=== PATIENT | male | born 1955 | race Caucasian/White ===

== ENCOUNTER 2019-06-01 19:08 | IRF | payer OTHER, SELFPAY ==
--- NOTE | ~2019-06-01 | XR_ITS ---
EXAMINATION: XR chest 1V portable INDICATION: Assess PICC position TECHNIQUE: Portable AP chest at 2013 hours COMPARISON: None available FINDINGS: A right upper extremity PICC is followed as far as the distal superior vena cava. Its tip p rojects over thoracolumbar fusion hardware. There is a small right pleural effusion. The left lung is clear. There is no pneumothorax. There are changes of bilateral total shoulder arthroplasty. IMPRESSION: 1. Right upper extremity PICC followed as far as the distal superior vena cava. 2. Small right pleural effusion. Reviewed, dictated and finalized at location A.
[2019-06-01 22:00] VITALS: BP 149/71; PULSE 91; RESP 17; TEMP 37.1; O2SAT 97; BMI 23.2
[2019-06-01] MEDS: GABAPENTIN 300 MG CAPSULE PO (23:24)
[2019-06-01] MEDS: INSULIN GLARGINE (*BKC) 100 UNITS/ML 15 UNITS SUB-Q (23:25)
[2019-06-01 23:32] LABS: Glucose Point of Care 159 (65-105)
[2019-06-02] MEDS: ceFAZolin 2 GM/D5W 50 ML 2 GM/50 ML BAG IVPB ×4 (00:22→22:26)
[2019-06-02 05:20] LABS: Basophils Absolute Auto 0.1 K/mm3 (0.0-0.1); Basophils Percent Auto 0.7 % (0.2-1.2); Eosinophils Percent Auto 11.3 % (0-4.4); Hematocrit 27.4 % (42.0-52.0); Hemoglobin 8.4 g/dL (14.0-18.0); Immature Granulocyte Absolute 0.05 K/mm3 (0.00-0.031); Immature Granulocyte Percent A 0.6 % (0-0.5); Lymphocytes Absolute Auto 1.04 K/mm3 (0.9-3.2); Lymphocytes Percent Auto 12.1 % (18.3-44.2); Mean Corpuscular HGB Conc 30.7 g/dl (32-36); Mean Corpuscular Hemoglobin 26.5 pg (26-34); Mean Corpuscular Volume 86.4 fl (80-100); Mean Platelet Volume 8.2 fl (7.4-10.4); Monocytes Absolute Auto 0.7 K/mm3 (0.1-0.6); Monocytes Percent Auto 7.9 % (2.6-8.5); Neutrophils Absolute Auto 5.8 K/mm3 (1.3-6.7); Neutrophils Percent Auto 67.4 % (45.5-73.1); Platelet Count Result 689 k/mm3 (150-375); Red Blood Count 3.17 M/mm3 (4.6-6.20); Red Cell Distribution Width 15.1 % (11.5-14.5); White Blood Count 8.6 K/mm3 (4.5-10.0)
[2019-06-02 05:30] LABS: Hemoglobin A1C 6.7 % (<5.7)
[2019-06-02 05:39] LABS: Blood Urea Nitrogen 11 mg/dL (9-20); Calcium 9.6 mg/dL (8.4-10.2); Carbon Dioxide 31 mmol/L (22-30); Chloride 98 mmol/L (98-107); Estimated CRCL calculation 97 ml/min; Estimated Glomerular Filt Rate > 60; Glucose 135 mg/dL (75-110); Potassium 4.3 mmol/L (3.4-5.0); Sodium 132 mmol/L (137-145)
[2019-06-02 06:00] VITALS: BP 140/73; PULSE 77; RESP 17; TEMP 36.5; O2SAT 97
[2019-06-02] MEDS: ACETAMINOPHEN 500 MG TABLET PO ×4 (06:11→23:47)
[2019-06-02 06:21] LABS: Glucose Point of Care 131 (65-105)
[2019-06-02] MEDS: INSULIN ASPART (*BKC) 100 UNITS/ML 8 UNITS SUB-Q ×3 (07:57→17:08)
[2019-06-02] MEDS: ASPIRIN 325 MG ENTERIC TABLET PO (08:31)
[2019-06-02] MEDS: rifAMPin 300 MG CAPSULE 600 MG PO (08:32)
[2019-06-02] MEDS: ROSUVASTATIN 10 MG TABLET 20 MG PO (08:32)
[2019-06-02] MEDS: SENNOSIDES 8.6 MG TABLET 17.2 MG PO ×2 (08:32→17:07)
[2019-06-02] MEDS: CHOLECALCIFEROL 1,000 UNIT TABLET 1000 UNITS PO (08:32)
[2019-06-02] MEDS: TAMSULOSIN HCL 0.4 MG CAPSULE PO (08:32)
[2019-06-02] MEDS: hydroCHLOROthiazide 12.5 MG CAPSULE PO ×2 (08:32→17:07)
[2019-06-02] MEDS: polyethylene glycoL 3350 17 GM POWD.PACK 34 GM PO ×2 (08:32→17:07)
[2019-06-02] MEDS: lisinopriL 20 MG TABLET PO ×2 (08:33→17:07)
[2019-06-02] MEDS: GABAPENTIN 300 MG CAPSULE PO ×3 (08:33→17:06)
--- NOTE | 2019-06-02 11:30 | WPDREHABHP ---
H&P: HPI History of Present Illness Chief complaint: T 9-10 Osteomyelitis Narrative: William García is a 63 year old male HISTORY OF PRESENT ILLNESS: The patient's primary rehab impairment category is orthopedic/other The etiologic diagnosis is T10-T11 pathological fracture / status post surgery I saw this patient [id number] on June 02, 2019 at 11:30 a.m. The patient is a 63-year-old right-handed male with a prior medical history of diabetes mellitus with diabetic peripheral neuropathy, left foot osteomyelitis, and hypertension who presented to [facility] on May 13 for evaluation of possible thoracic osteomyelitis/ diskitis. The patient reported that he has had progressive back pain over the previous few weeks which became severe enough with the previous several days. He also repeated generalized weakness spasm in both legs and constipation. The patient is recovering from a recent episode of left foot osteomyelitis MS as a bacteremia. The patient has an I and D of his left foot on March 27, [address] Ezequiel Oh. Wound cultures and blood cultures were also positive 1 March 27, 2019. The patient completed 6 weeks of IV Ancef on May 09 and was placed on 2 weeks of oral cefdinir to complete the treatment. Initial workup was significant for elevated sedimentation rate and CRP with no leukocytosis reviewed. MRI of the left spine showed degenerative disc disease CT of the abdomen /pelvis demonstrated stool burden the cecum and ascending colon as well as T9-T10 osseous erosion. this was followed by MRI of the thoracic spine that was concerning for osteomyelitis / diskitis. The patient was transferred to [facility] and May 15, 2019 for neurosurgical evaluation. The patient was hypertensive upon arrival with blood pressure of 214/112 and he was restarted on home medication of lisinopril and hydrochlorothiazide. His potassium was 3.2 which was replaced with oral medication. the hemoglobin A1c was 7.4 in photo in 2019. The final conclusion was the patient has a pathological fracture of T11-T10 and vertebral osteomyelitis. Orthopedic spine thoracic surgery and infectious disease physicians were all consulted and the patient underwent T7-L2 posterior instrumentation, T7-L2 posterior arthrodesis with local autograft, left T11 him I laminectomy and facetectomy on May 18, 2019. He was sent back to surgery on May 25, 2019 for T10 and T11 corpectomy knees with prosthetic reconstruction and T9-T12 anterior anterior spinal arthrodesis with her rested rib graft. The sutures were removed by orthopedic physician on June 01, 2019. He is to follow-up with Dr. Matthew in 4 weeks from surgery. On May 26 the patient received 1 unit of packed RBCs due to hemoglobin being down to 6.9 and is stable at 8.4. His chest tube was removed on May 28, 2019. The patient remains awake alert well oriented time place and person. He did have experience hypertension hypoglycemia pneumonia constipation generalized weakness acute will last anemia uncontrolled pain and gait instability leukocytosis during hospitalization and post surgery predated Infectious Disease recommended another 6 weeks course of IV antibiotics which is cefazolin from surgery last date of May 24, 2020 the surgery was performed PICC line was placed June 01, 2019 he is to follow up with , per at risk and also other physicians post rehab The patient has not traveled outside the [place] or had contact with someone with [place] that is travel outside the [place] in the past 21 days. The patient not has not traveled to an area he was this experiencing Esther transmission of the Coronavirus and has not had closed 1st contact with anyone that has. Patient does not have a fever. The patient is not experiencing lower respiratory illness symptoms or upper respiratory symptoms Therapy was initiated at the acute care facility and the patient transferred to us from
[2019-06-02 11:49] LABS: Glucose Point of Care 183 (65-105)
[2019-06-02 12:48] VITALS: BMI 23.2
[2019-06-02 14:00] VITALS: BP 102/53; PULSE 88; RESP 20; TEMP 37.2; O2SAT 100
[2019-06-02 16:53] LABS: Glucose Point of Care 200 (65-105)
[2019-06-02] MEDS: INSULIN GLARGINE (*BKC) 100 UNITS/ML 15 UNITS SUB-Q (20:18)
[2019-06-02 21:43] LABS: Glucose Point of Care 205 (65-105)
[2019-06-02 22:00] VITALS: BP 133/70; PULSE 88; RESP 18; TEMP 37.4; O2SAT 100
[2019-06-03] MEDS: ACETAMINOPHEN 500 MG TABLET PO ×2 (05:52→11:50)
[2019-06-03] MEDS: ceFAZolin 2 GM/D5W 50 ML 2 GM/50 ML BAG IVPB ×3 (05:52→23:55)
[2019-06-03 06:00] VITALS: BP 148/77; PULSE 78; RESP 18; TEMP 37.1; O2SAT 98
[2019-06-03 06:33] LABS: Glucose Point of Care 158 (65-105)
[2019-06-03] MEDS: INSULIN ASPART (*BKC) 100 UNITS/ML 8 UNITS SUB-Q ×3 (07:04→17:05)
[2019-06-03] MEDS: CHOLECALCIFEROL 1,000 UNIT TABLET 1000 UNITS PO (08:37)
[2019-06-03] MEDS: TAMSULOSIN HCL 0.4 MG CAPSULE PO (08:37)
[2019-06-03] MEDS: rifAMPin 300 MG CAPSULE 600 MG PO (08:37)
[2019-06-03] MEDS: ASPIRIN 325 MG ENTERIC TABLET PO (08:37)
[2019-06-03] MEDS: polyethylene glycoL 3350 17 GM POWD.PACK 34 GM PO ×2 (08:37→17:03)
[2019-06-03] MEDS: ROSUVASTATIN 10 MG TABLET 20 MG PO (08:37)
[2019-06-03] MEDS: lisinopriL 20 MG TABLET PO ×2 (08:37→17:03)
[2019-06-03] MEDS: SENNOSIDES 8.6 MG TABLET 17.2 MG PO ×2 (08:37→17:03)
[2019-06-03] MEDS: hydroCHLOROthiazide 12.5 MG CAPSULE PO ×2 (08:38→17:04)
[2019-06-03] MEDS: GABAPENTIN 300 MG CAPSULE PO ×3 (08:38→17:04)
[2019-06-03 11:50] LABS: Glucose Point of Care 169 (65-105)
--- NOTE | 2019-06-03 12:02 | RPD ---
INDIVIDUALIZED PLAN OF CARE FOR William García Brief Synthesis of Pre-Admission Screen, Post-Admission Evaluation and Therapy Evaluations: The patient presents to rehab with T10-T11 pathological fracture. Comorbidities include vertebral osteomyelitis, cervical cord myelomalacia, severe spinal stenosis at L3-4 and L4-5, small left lateral disc herniation at L4-5, moderately severe spinal stenosis at L1-2 and L2-3, bilateral pleural effusions, left inguinal hernia, diabetes mellitus with diabetic peripheral neuropathy, hypertension, bilateral knee pain, musculosketetal fibromatosis left foot, numbness of left hand, skin lesion, diabetic charcot left foot, chronic plantar wound (11/2018) c/b MSSA infection with osteomyelitis, MSSA bacteremia (6wk abx tx completed but anticipate another 6wk course from surgery 05/24). The patient requires physician services for medical oversight, management of postop complications in setting of present comorbidities, and pain management. She will be followed at least three times a week by the rehabilitation physician. Labs will be drawn to monitor blood counts and electrolytes periodically. The patient requires nursing services for DVT prophylactics, infection protection, medication management and education, pressure relief, and wound care. Deficits include: ADLs, Balance, Endurance, Family Training/Education, Mobility, Pain Management, ROM, Safety, Strength, Transfers Service Loss Control Consultant/Case Management for: Discharge Planning and Patient/Family Counseling Physical Therapy: 5 days per week for 90 minutes. Treatments may include: Therapeutic Exercise, Gait Training, Neuromuscular Re-education, Transfer Training, Community Reintegration, Bed Mobility, Patient/Family Education, Wheelchair Mobility Group Therapy/Concurrent Therapy Rationales: -Improve attention span during functional activities in a distracted environment. -Enhance problem solving and/or adequate judgment skills during functional activities in a distracted environment. -Promote increased safety awareness in a distracted environment to reduce fall risk with functional tasks, transfers, and ambulation to allow a more safe, self-sufficient return to the home environment. -Improve dynamic balance skills to promote safety and independence with functional activities in a distracted environment for maximum gain. Occupational Therapy: 5 days per week for 90 minutes. Treatments may include: Therapeutic Exercise, Therapeutic Activity, Cognitive Training, Self-Care Transfer Training, Community Reintegration, Home Management, Patient/Family Education, Wheelchair Mobility Training, Energy Conservation Training Group Therapy/Concurrent Therapy Rationales: -Allow therapist to observe and teach generalization and carry-over of skills learned in individual therapy. -Enhance problem solving and sequencing skills during therapeutic activities in a distracted environment. -Promote increased safety awareness in a realistic setting to reduce fall risk with functional tasks due to visual and verbal distractions. -Increase functional level with ADLs, ADL transfers and use of adaptive equipment through therapeutic activities with others while promoting safety to allow a more safe, self-sufficient return home. Medical Prognosis: Good Anticipated Length of Stay: 12 days Rehab Goals: Eating Goal: 06-Independent Oral Hygiene Goal: 06-Independent Toileting Hygiene Goal: 06-Independent Shower/Bathe Self Goal: 04-Supervision or Touching Assistance Upper Body Dressing Goal: 06-Independent Lower Body Dressing Goal: 06-Independent Putting On/Taking Off Footwear Goal: 06-Independent Rolling Left and Right Goal: 06-Independent Sit to Lying Goal: 06-Independent Lying to Sitting on Side of Bed Goal: 06-Independent Sit to Stand Goal: 06-Independent Chair/[id number] Transfer Goal: 06-Independent Toilet Transfer Goal: 06-Independent Car Transfer Goal: 04-Supervision or Touching Assistance Walk 10'
--- NOTE | 2019-06-03 13:06 | WPDNEURORHBP ---
Subjective Date/time seen: 06/03/19 13:06 Interval history: this 63-year-old diabetic gentleman is here after the surgery performed for T10-T11 pathological fracture. His incisions are clean he is afebrile denies any headache nausea vomiting chest pain shortness of breath fever chills his main trouble is the ambulation but he needs significant assistance which is the combination of his spinal surgery and also significant peripheral neuropathy related to underlying diabetes Review of Systems Review of Systems: All systems reviewed & are unremarkable except as noted in HPI and below Functional Status Transfers Ability Ability to Transfer In/Out of Chair: Minimum Assistance X 1 Exam Const: General: comfortable and no acute distress HENMT: General nose exam: Normal nares present Mouth: Yes moist mucous membranes Eyes: General: appearance normal, both eyes and all related structures Neck: Neck: supple and no JVD Resp: Effort & Inspection: normal respiratory effort Auscultation: clear to auscultation bilaterally Cardio: Rate: regular rate Rhythm: regular rhythm GI: GI Palp: Yes Soft to palpation Auscultation: normal bowel sounds Skin: General skin exam: normal color and no rashes or lesions noted Neuro: Other: patient remains awake alert well oriented in time place and person with normal speech and language function normal cranial nerve examination decrease strength lower extremities much more so than the upper extremities with evidence of significant peripheral neuropathy Needing assistance in the activities of daily living particularly the ambulation and transfers Extrem: Other: evidence of significant peripheral neuropathy along with the deformed left foot Psych: Mental Status: mental status grossly normal Objective Data Vital Signs Vital Signs: Vital Signs - 24 hr 06/02/19 14:00 06/02/19 22:00 06/03/19 06:00 Temperature 37.2 C 37.4 C 37.1 C Pulse Rate 88 88 78 Respiratory Rate 20 18 18 Blood Pressure 102/53 L 133/70 148/77 H Pulse Oximetry 100 100 98 Intake/Output Intake/Output: Intake & Output 05/31/19 06/01/19 06/02/19 06/03/19 23:59 23:59 23:59 23:59 Intake Total 1400 50 Balance 1400 50 Meds/Results Medications: Active Medications Generic Name Dose Route Start Last Admin Trade Name Freq PRN Reason Stop Dose Admin Acetaminophen 500 mg 06/02/19 00:00 06/03/19 11:50 Tylenol Tablet PO 500 mg Q6HR KAVYA Administration Aspirin 325 mg 06/02/19 09:00 06/03/19 08:37 Aspirin Ec PO 325 mg DAILY KAVYA Administration Calcium Carbonate 500 mg 06/01/19 22:42 Tums PO DAILY PRN Heartburn Cyclobenzaprine HCl 20 mg 06/01/19 23:20 Flexeril PO TID PRN Spasms Dextrose 12.5 gm 06/01/19 21:57 Dextrose 50% Syringe IV PUSH PRN PRN Hypoglycemia Protocol Gabapentin 300 mg 06/01/19 22:50 06/03/19 08:38 Neurontin PO 300 mg TID KAVYA Administration Glucagon 1 mg 06/01/19 21:57 Glucagon For Inj IM PRN PRN Hypoglycemia Protocol Glucose 15 gm 06/01/19 21:57 Glutose 15 PO PRN PRN Hypoglycemia Protocol Hydrochlorothiazide 12.5 mg 06/02/19 09:00 06/03/19 08:38 Hydrochlorothiazide PO 12.5 mg BID KAVYA Administration Dextrose 1,000 mls @ 100 mls/hr 06/01/19 21:57 Dextrose 5% 1,000 Ml IVPB PRN PRN Hypoglycemia Protocol Cefazolin Sodium 2 gm in 50 mls @ 100 mls/hr 06/01/19 22:55 06/03/19 06:22 Ancef 2 Gm/D5w 50 Ml IVPB Infused Q8H KAVYA Infusion Insulin Aspart 8 units 06/02/19 08:00 06/03/19 11:52 Novolog SUB-Q 8 units TIDWM KAVYA Administration Insulin Aspart 3 - 6 units 06/02/19 08:00 06/03/19 11:52 Novolog SUB-Q Not Given TIDWM [facility] Protocol Insulin Glargine 15 units 06/01/19 22:10 06/02/19 20:18 Lantus SUB-Q 15 units HS KAVYA Administration Lactulose 30 gm 06/01/19 22:49 Lactulose PO TID
[2019-06-03 14:00] VITALS: BP 109/57; PULSE 84; RESP 20; TEMP 37.2; O2SAT 99
[2019-06-03 16:44] LABS: Glucose Point of Care 104 (65-105)
[2019-06-03] MEDS: ACETAMINOPHEN 500 MG TABLET 1000 MG PO (17:03)
[2019-06-03] MEDS: INSULIN GLARGINE (*BKC) 100 UNITS/ML 15 UNITS SUB-Q (20:45)
[2019-06-03 21:28] LABS: Glucose Point of Care 199 (65-105)
[2019-06-03 22:00] VITALS: BP 176/78; PULSE 91; RESP 19; TEMP 37.3; O2SAT 95
[2019-06-04] MEDS: CYCLOBENZAPRINE HCL 10 MG TABLET 20 MG PO ×3 (00:37→23:14)
[2019-06-04] MEDS: ACETAMINOPHEN 500 MG TABLET 1000 MG PO ×5 (00:37→23:14)
[2019-06-04] MEDS: ceFAZolin 2 GM/D5W 50 ML 2 GM/50 ML BAG IVPB ×3 (05:56→23:14)
[2019-06-04 06:00] VITALS: BP 158/83; PULSE 66; RESP 18; TEMP 36.8; O2SAT 100
[2019-06-04 06:12] LABS: Basophils Absolute Auto 0.1 K/mm3 (0.0-0.1); Basophils Percent Auto 1.1 % (0.2-1.2); Eosinophils Absolute Auto 1.1 K/mm3 (0-0.3); Eosinophils Percent Auto 16.4 % (0-4.4); Hematocrit 26.3 % (42.0-52.0); Immature Granulocyte Absolute 0.04 K/mm3 (0.00-0.031); Immature Granulocyte Percent A 0.6 % (0-0.5); Lymphocytes Absolute Auto 1.11 K/mm3 (0.9-3.2); Lymphocytes Percent Auto 16.7 % (18.3-44.2); Mean Corpuscular HGB Conc 30.4 g/dl (32-36); Mean Corpuscular Hemoglobin 26.6 pg (26-34); Mean Corpuscular Volume 87.4 fl (80-100); Mean Platelet Volume 8.2 fl (7.4-10.4); Monocytes Absolute Auto 0.6 K/mm3 (0.1-0.6); Monocytes Percent Auto 8.7 % (2.6-8.5); Neutrophils Absolute Auto 3.8 K/mm3 (1.3-6.7); Neutrophils Percent Auto 56.5 % (45.5-73.1); Platelet Count Result 621 k/mm3 (150-375); Red Blood Count 3.01 M/mm3 (4.6-6.20); Red Cell Distribution Width 15.2 % (11.5-14.5); White Blood Count 6.7 K/mm3 (4.5-10.0)
[2019-06-04 06:25] LABS: Alkaline Phosphatase 136 U/L (38-126); Aspartate Amino Transferase 21 U/L (17-59); Bilirubin,Total 0.2 mg/dL (0.2-1.3); Blood Urea Nitrogen 15 mg/dL (9-20); Calcium 9.4 mg/dL (8.4-10.2); Carbon Dioxide 34 mmol/L (22-30); Chloride 99 mmol/L (98-107); Estimated CRCL calculation 97 ml/min; Estimated Glomerular Filt Rate > 60; Glucose 123 mg/dL (75-110); Sodium 136 mmol/L (137-145)
[2019-06-04 06:44] LABS: Alanine Aminotransferase < 6 U/L (4-50)
[2019-06-04] MEDS: INSULIN ASPART (*BKC) 100 UNITS/ML 8 UNITS SUB-Q ×3 (07:31→17:04)
[2019-06-04 07:37] LABS: Glucose Point of Care 111 (65-105)
[2019-06-04] MEDS: polyethylene glycoL 3350 17 GM POWD.PACK 34 GM PO (08:42)
[2019-06-04] MEDS: ROSUVASTATIN 10 MG TABLET 20 MG PO (08:43)
[2019-06-04] MEDS: rifAMPin 300 MG CAPSULE 600 MG PO (08:43)
[2019-06-04] MEDS: hydroCHLOROthiazide 12.5 MG CAPSULE PO ×2 (08:43→17:04)
[2019-06-04] MEDS: lisinopriL 20 MG TABLET PO ×2 (08:43→17:04)
[2019-06-04] MEDS: GABAPENTIN 300 MG CAPSULE PO ×3 (08:43→17:06)
[2019-06-04] MEDS: TAMSULOSIN HCL 0.4 MG CAPSULE PO (08:43)
[2019-06-04] MEDS: ASPIRIN 325 MG ENTERIC TABLET PO (08:43)
[2019-06-04] MEDS: SENNOSIDES 8.6 MG TABLET 17.2 MG PO (08:43)
[2019-06-04] MEDS: CHOLECALCIFEROL 1,000 UNIT TABLET 1000 UNITS PO (08:43)
--- NOTE | 2019-06-04 11:58 | WPDNEURORHBP ---
Subjective Date/time seen: 06/04/19 11:58 Interval history: this 63-year-old very pleasant diabetic gentleman is here after having had surgery for the T10-T11 pathological fracture followed by osteomyelitis and even before that he was treated for osteomyelitis and MSSA with significant evidence of peripheral neuropathy Patient is doing remarkably well in over rehab the wounds are clean from the previous multiple surgeries on his spine and also the place where the chest tube was placed. The patient denies any headache nausea vomiting chest pain shortness of breath fever chills or sore throat Functional Status Ambulation Ability Ambulation Assistive Devices: Parallel Bars Transfers Ability Ability to Transfer In/Out of Chair: Minimum Assistance X 1 Exam Const: General: comfortable and no acute distress HENMT: General nose exam: Normal nares present Mouth: Yes moist mucous membranes Eyes: General: appearance normal, both eyes and all related structures Neck: Neck: supple and no JVD Resp: Effort & Inspection: normal respiratory effort Auscultation: clear to auscultation bilaterally Cardio: Rate: regular rate Rhythm: regular rhythm GI: GI Palp: Yes Soft to palpation Auscultation: normal bowel sounds Skin: General skin exam: normal color and no rashes or lesions noted Neuro: Other: patient is speech and language functions are normal cranial examination normal is main deficit is related to his lower extremity weakness which is due to multiple factors including significant peripheral neuropathy lower extremities more so than the upper extremities along with I suspect spinal cord dysfunction related to multiple spinal surgeries Extrem: General: normal to inspection Psych: Mental Status: mental status grossly normal Objective Data Vital Signs Vital Signs: Vital Signs - 24 hr 06/04/19 14:00 06/04/19 22:00 06/05/19 06:00 Temperature 36.8 C 36.8 C 37.0 C Pulse Rate 80 76 74 Respiratory Rate 18 18 18 Blood Pressure 125/69 112/63 149/71 H Pulse Oximetry 99 100 100 Intake/Output Intake/Output: Intake & Output 06/02/19 06/03/19 06/04/19 06/05/19 23:59 23:59 23:59 23:59 Intake Total 9084 443 9540 290 Balance 3321 859 3937 290 Meds/Results Medications: Active Medications Generic Name Dose Route Start Last Admin Trade Name Freq PRN Reason Stop Dose Admin Acetaminophen 1,000 mg 06/03/19 18:00 06/05/19 06:05 Tylenol Tablet PO 1,000 mg Q6HR KAVYA Administration Aspirin 325 mg 06/02/19 09:00 06/05/19 08:54 Aspirin Ec PO 325 mg DAILY KAVYA Administration Calcium Carbonate 500 mg 06/01/19 22:42 Tums PO DAILY PRN Heartburn Cyclobenzaprine HCl 20 mg 06/01/19 23:20 06/05/19 06:10 Flexeril PO 20 mg TID PRN Administration Spasms Dextrose 12.5 gm 06/01/19 21:57 Dextrose 50% Syringe IV PUSH PRN PRN Hypoglycemia Protocol Gabapentin 300 mg 06/01/19 22:50 06/05/19 08:53 Neurontin PO 300 mg TID KAVYA Administration Glucagon 1 mg 06/01/19 21:57 Glucagon For Inj IM PRN PRN Hypoglycemia Protocol Glucose 15 gm 06/01/19 21:57 Glutose 15 PO PRN PRN Hypoglycemia Protocol Hydrochlorothiazide 12.5 mg 06/02/19 09:00 06/05/19 08:54 Hydrochlorothiazide PO 12.5 mg BID KAVYA Administration Dextrose 1,000 mls @ 100 mls/hr 06/01/19 21:57 Dextrose 5% 1,000 Ml IVPB PRN PRN Hypoglycemia Protocol Cefazolin Sodium 2 gm in 50 mls @ 100 mls/hr 06/01/19 22:55 06/05/19 06:36 Ancef 2 Gm/D5w 50 Ml IVPB Infused Q8H KAVYA Infusion Insulin Aspart 8 units 06/02/19 08:00 06/05/19 08:57 Novolog SUB-Q 8 units TIDWM KAVYA Administration Insulin Aspart 3 - 6 units 06/02/19 08:00 06/05/19 08:54 Novolog SUB-Q Not Given TIDWM [facility] Protocol Insulin Glargine 15 units 06/01/19 22:10 06/04/19 21:07 Lantus SUB-Q 15 units HS [facility] Administration Lactulo
[2019-06-04 12:09] LABS: Glucose Point of Care 119 (65-105)
[2019-06-04 14:00] VITALS: BP 125/69; PULSE 80; RESP 18; TEMP 36.8; O2SAT 99
[2019-06-04 17:04] LABS: Glucose Point of Care 102 (65-105)
--- NOTE | 2019-06-04 18:03 | PC.NURSE ---
pt refused miralax and senna at 1700. Pt states he had BM 06/02 and he doesn't typically go every day. updated.
[2019-06-04] MEDS: INSULIN GLARGINE (*BKC) 100 UNITS/ML 15 UNITS SUB-Q (21:07)
[2019-06-04 21:32] LABS: Glucose Point of Care 159 (65-105)
[2019-06-04 22:00] VITALS: BP 112/63; PULSE 76; RESP 18; TEMP 36.8; O2SAT 100
[2019-06-05 06:00] VITALS: BP 149/71; PULSE 74; RESP 18; TEMP 37; O2SAT 100
[2019-06-05] MEDS: ACETAMINOPHEN 500 MG TABLET 1000 MG PO ×3 (06:05→18:43)
[2019-06-05] MEDS: ceFAZolin 2 GM/D5W 50 ML 2 GM/50 ML BAG IVPB ×3 (06:06→21:03)
[2019-06-05] MEDS: CYCLOBENZAPRINE HCL 10 MG TABLET 20 MG PO ×2 (06:10→16:09)
[2019-06-05 06:38] LABS: Glucose Point of Care 77 (65-105)
[2019-06-05] MEDS: TAMSULOSIN HCL 0.4 MG CAPSULE PO (08:53)
[2019-06-05] MEDS: lisinopriL 20 MG TABLET PO ×2 (08:53→18:42)
[2019-06-05] MEDS: rifAMPin 300 MG CAPSULE 600 MG PO (08:53)
[2019-06-05] MEDS: GABAPENTIN 300 MG CAPSULE PO ×3 (08:53→18:40)
[2019-06-05] MEDS: ROSUVASTATIN 10 MG TABLET 20 MG PO (08:53)
[2019-06-05] MEDS: ASPIRIN 325 MG ENTERIC TABLET PO (08:54)
[2019-06-05] MEDS: hydroCHLOROthiazide 12.5 MG CAPSULE PO ×2 (08:54→18:40)
[2019-06-05] MEDS: CHOLECALCIFEROL 1,000 UNIT TABLET 1000 UNITS PO (08:54)
[2019-06-05] MEDS: INSULIN ASPART (*BKC) 100 UNITS/ML 8 UNITS SUB-Q ×2 (08:57→18:46)
--- NOTE | 2019-06-05 09:44 | PCDIET ---
Nutrition Follow-Up Complete: Nutrition Diagnosis: Altered nutrition related labs related to diabetes mellitus as evidenced by HgbA1C of 6.7%. Nutrition Goal: Patient will continue to consume 75% of meals or greater. Goal met. Patient consuming 100% of meals on diabetic, carbohydrate controlled diet, which is appropriate. Last recorded weight is 82.1 kg. Recommend obtaining new weight. Bowel Motility: +BM on 06/03/19. Labs Reviewed: Glu (77) Meds Noted: Ancef, Hydrochlorothiazide, Novolog, Lantus, Miralax, Senna, Vitamin D Additional Notes: Flank and back incisions well approximated. No documented pressure ulcers. Will continue to monitor with same goal. Nutrition Monitoring and Evaluation: Follow up every 7 days.
[2019-06-05 12:08] LABS: Glucose Point of Care 66 (65-105)
[2019-06-05 14:00] VITALS: BP 119/62; PULSE 89; RESP 20; TEMP 37.1; O2SAT 89
[2019-06-05 14:01] LABS: Glucose Point of Care 240 (65-105)
--- NOTE | 2019-06-05 14:22 | WPDNEURORHBP ---
Subjective Date/time seen: 06/05/19 14:22 Interval history: this 63-year-old gentleman is here because of pathological fracture of the T10 and T11 status post multiple surgeries on his spine with significant weakness of the lower extremities related to spinal cord dysfunction I presume and also significant peripheral neuropathy affecting the lower extremities more so than the upper extremities he is doing better in the rehab and took about 6 steps and while sitting he is able to move his legs quite well denies any headache nausea vomiting chest pain shortness of breath fever chills or sore throat Review of Systems Review of Systems: All systems reviewed & are unremarkable except as noted in HPI and below Constitutional: Constitutional: Reports as per HPI and Reports no additional constitutional complaints Functional Status Ambulation Ability Ambulation Assistive Devices: Parallel Bars Transfers Ability Ability to Transfer In/Out of Chair: Minimum Assistance X 1 Exam Const: General: comfortable and no acute distress HENMT: General nose exam: Normal nares present Mouth: Yes moist mucous membranes Eyes: General: appearance normal, both eyes and all related structures Neck: Neck: supple and no JVD Resp: Effort & Inspection: normal respiratory effort Auscultation: clear to auscultation bilaterally Cardio: Rate: regular rate Rhythm: regular rhythm GI: GI Palp: Yes Soft to palpation Auscultation: normal bowel sounds Skin: General skin exam: normal color and no rashes or lesions noted Neuro: Other: patient's mental status is normal cranial exam shows normal reflexes are absent lower extremity weakness is some better no evidence of DVT on clinical examination Extrem: General: normal to inspection Psych: Mental Status: mental status grossly normal Objective Data Vital Signs Vital Signs: Vital Signs - 24 hr 06/04/19 22:00 06/05/19 06:00 Temperature 36.8 C 37.0 C Pulse Rate 76 74 Respiratory Rate 18 18 Blood Pressure 112/63 149/71 H Pulse Oximetry 100 100 Intake/Output Intake/Output: Intake & Output 06/02/19 06/03/19 06/04/19 06/05/19 23:59 23:59 23:59 23:59 Intake Total 6512 255 7928 530 Balance 3368 456 8499 530 Meds/Results Medications: Active Medications Generic Name Dose Route Start Last Admin Trade Name Freq PRN Reason Stop Dose Admin Acetaminophen 1,000 mg 06/03/19 18:00 06/05/19 13:45 Tylenol Tablet PO 1,000 mg Q6HR KAVYA Administration Aspirin 325 mg 06/02/19 09:00 06/05/19 08:54 Aspirin Ec PO 325 mg DAILY KAVYA Administration Calcium Carbonate 500 mg 06/01/19 22:42 Tums PO DAILY PRN Heartburn Cyclobenzaprine HCl 20 mg 06/01/19 23:20 06/05/19 06:10 Flexeril PO 20 mg TID PRN Administration Spasms Dextrose 12.5 gm 06/01/19 21:57 Dextrose 50% Syringe IV PUSH PRN PRN Hypoglycemia Protocol Gabapentin 300 mg 06/01/19 22:50 06/05/19 13:45 Neurontin PO 300 mg TID KAVYA Administration Glucagon 1 mg 06/01/19 21:57 Glucagon For Inj IM PRN PRN Hypoglycemia Protocol Glucose 15 gm 06/01/19 21:57 Glutose 15 PO PRN PRN Hypoglycemia Protocol Hydrochlorothiazide 12.5 mg 06/02/19 09:00 06/05/19 08:54 Hydrochlorothiazide PO 12.5 mg BID KAVYA Administration Dextrose 1,000 mls @ 100 mls/hr 06/01/19 21:57 Dextrose 5% 1,000 Ml IVPB PRN PRN Hypoglycemia Protocol Cefazolin Sodium 2 gm in 50 mls @ 100 mls/hr 06/01/19 22:55 06/05/19 06:36 Ancef 2 Gm/D5w 50 Ml IVPB Infused Q8H [facility] Infusion Insulin Aspart 8 units 06/02/19 08:00 06/05/19 13:47 Novolog SUB-Q Not Given TIDWM [facility] Insulin Aspart 3 - 6 units 06/02/19 08:00 06/05/19 13:45 Novolog SUB-Q Not Given TIDWM [facility] Protocol Insulin Glargine 15 units 06/01/19 22:10 06/04/19 21:07 Lantus SUB-Q 15 units HS KAVYA Administration Lactulose 30 gm 05/13
[2019-06-05 17:27] LABS: Glucose Point of Care 182 (65-105)
[2019-06-05] MEDS: INSULIN GLARGINE (*BKC) 100 UNITS/ML 15 UNITS SUB-Q (21:03)
[2019-06-05 21:12] LABS: Glucose Point of Care 224 (65-105)
[2019-06-05 21:42] VITALS: BP 130/71; PULSE 90; RESP 18; TEMP 37.1; O2SAT 98
[2019-06-06] MEDS: ACETAMINOPHEN 500 MG TABLET 1000 MG PO ×3 (04:55→16:59)
[2019-06-06] MEDS: ceFAZolin 2 GM/D5W 50 ML 2 GM/50 ML BAG IVPB ×3 (06:02→20:34)
[2019-06-06 06:22] VITALS: BP 135/68; PULSE 88; RESP 18; TEMP 37; O2SAT 96
[2019-06-06 06:49] LABS: Glucose Point of Care 144 (65-105)
[2019-06-06] MEDS: INSULIN ASPART (*BKC) 100 UNITS/ML 8 UNITS SUB-Q ×3 (07:41→16:58)
[2019-06-06] MEDS: rifAMPin 300 MG CAPSULE 600 MG PO (08:42)
[2019-06-06] MEDS: ASPIRIN 325 MG ENTERIC TABLET PO (08:42)
[2019-06-06] MEDS: ROSUVASTATIN 10 MG TABLET 20 MG PO (08:42)
[2019-06-06] MEDS: GABAPENTIN 300 MG CAPSULE PO ×3 (08:43→16:59)
[2019-06-06] MEDS: TAMSULOSIN HCL 0.4 MG CAPSULE PO (08:43)
[2019-06-06] MEDS: hydroCHLOROthiazide 12.5 MG CAPSULE PO ×2 (08:43→16:59)
[2019-06-06] MEDS: lisinopriL 20 MG TABLET PO ×2 (08:43→17:00)
[2019-06-06] MEDS: CHOLECALCIFEROL 1,000 UNIT TABLET 1000 UNITS PO (08:43)
[2019-06-06] MEDS: CYCLOBENZAPRINE HCL 10 MG TABLET 20 MG PO (11:32)
[2019-06-06 11:37] LABS: Glucose Point of Care 118 (65-105)
[2019-06-06 14:00] VITALS: BP 128/66; PULSE 82; RESP 20; TEMP 36.6; O2SAT 98
[2019-06-06 16:30] LABS: Glucose Point of Care 156 (65-105)
[2019-06-06] MEDS: INSULIN GLARGINE (*BKC) 100 UNITS/ML 15 UNITS SUB-Q (20:34)
[2019-06-06 21:04] LABS: Glucose Point of Care 233 (65-105)
[2019-06-06 22:00] VITALS: BP 126/72; PULSE 83; RESP 18; TEMP 36.9; O2SAT 100
[2019-06-07] MEDS: ACETAMINOPHEN 500 MG TABLET 1000 MG PO ×4 (00:37→17:45)
[2019-06-07 05:51] LABS: Glucose Point of Care 108 (65-105)
[2019-06-07 06:00] VITALS: BP 149/77; PULSE 74; RESP 18; TEMP 37; O2SAT 100
[2019-06-07] MEDS: ceFAZolin 2 GM/D5W 50 ML 2 GM/50 ML BAG IVPB ×3 (06:04→20:55)
[2019-06-07] MEDS: INSULIN ASPART (*BKC) 100 UNITS/ML 8 UNITS SUB-Q ×2 (09:28→17:43)
[2019-06-07] MEDS: CYCLOBENZAPRINE HCL 10 MG TABLET 20 MG PO ×2 (09:28→20:55)
[2019-06-07] MEDS: ASPIRIN 325 MG ENTERIC TABLET PO (09:29)
[2019-06-07] MEDS: lisinopriL 20 MG TABLET PO ×2 (09:31→17:45)
[2019-06-07] MEDS: hydroCHLOROthiazide 12.5 MG CAPSULE PO ×2 (09:31→17:45)
[2019-06-07] MEDS: GABAPENTIN 300 MG CAPSULE PO ×3 (09:31→17:44)
[2019-06-07] MEDS: CHOLECALCIFEROL 1,000 UNIT TABLET 1000 UNITS PO (09:31)
[2019-06-07] MEDS: rifAMPin 300 MG CAPSULE 600 MG PO (09:32)
[2019-06-07] MEDS: ROSUVASTATIN 10 MG TABLET 20 MG PO (09:32)
[2019-06-07] MEDS: TAMSULOSIN HCL 0.4 MG CAPSULE PO (09:33)
--- NOTE | 2019-06-07 11:28 | WPDNEURORHBP ---
Subjective Date/time seen: 06/07/19 11:28 S/P T10and T11 pathological fracture with spinal cord dysfunctionand peripheral neuropathy Review of Systems Review of Systems: All systems reviewed & are unremarkable except as noted in HPI and below Functional Status Ambulation Ability Ambulation Assistive Devices: Parallel Bars Transfers Ability Ability to Transfer In/Out of Chair: Minimum Assistance X 1 Exam Const: General: comfortable and no acute distress HENMT: Head: normal to inspection General nose exam: No nasal discharge present Eyes: General: appearance normal, both eyes and all related structures Neck: Neck: full ROM Resp: Auscultation: clear to auscultation bilaterally Cardio: Rate: regular rate Rhythm: regular rhythm GI: Auscultation: normal bowel sounds Skin: General skin exam: no rashes or lesions noted Neuro: General: patient oriented x3 Cranial nerves: Yes CN's II-XII intact bilaterally Speech: normal speech Motor exam (neuro): Abnormal motor strength present (decreased) Extrem: General: normal to inspection Psych: Appearance: grossly normal Objective Data Vital Signs Vital Signs: Vital Signs - 24 hr 06/06/19 14:00 06/06/19 22:00 06/07/19 06:00 Temperature 36.6 C 36.9 C 37.0 C Pulse Rate 82 83 74 Respiratory Rate 20 18 18 Blood Pressure 128/66 126/72 149/77 H Pulse Oximetry 98 100 100 Intake/Output Intake/Output: Intake & Output 06/04/19 06/05/19 06/06/19 06/07/19 23:59 23:59 23:59 23:59 Intake Total 1040 870 870 330 Balance 1040 870 870 330 Meds/Results Medications: Active Medications Generic Name Dose Route Start Last Admin Trade Name Freq PRN Reason Stop Dose Admin Acetaminophen 1,000 mg 06/03/19 18:00 06/07/19 06:42 Tylenol Tablet PO 1,000 mg Q6HR KAVYA Administration Aspirin 325 mg 06/02/19 09:00 06/07/19 09:29 Aspirin Ec PO 325 mg DAILY KAVYA Administration Calcium Carbonate 500 mg 06/01/19 22:42 Tums PO DAILY PRN Heartburn Cyclobenzaprine HCl 20 mg 06/01/19 23:20 06/07/19 09:28 Flexeril PO 20 mg TID PRN Administration Spasms Dextrose 12.5 gm 06/01/19 21:57 Dextrose 50% Syringe IV PUSH PRN PRN Hypoglycemia Protocol Gabapentin 300 mg 06/01/19 22:50 06/07/19 09:31 Neurontin PO 300 mg TID KAVYA Administration Glucagon 1 mg 06/01/19 21:57 Glucagon For Inj IM PRN PRN Hypoglycemia Protocol Glucose 15 gm 06/01/19 21:57 Glutose 15 PO PRN PRN Hypoglycemia Protocol Hydrochlorothiazide 12.5 mg 06/02/19 09:00 06/07/19 09:31 Hydrochlorothiazide PO 12.5 mg BID KAVYA Administration Dextrose 1,000 mls @ 100 mls/hr 06/01/19 21:57 Dextrose 5% 1,000 Ml IVPB PRN PRN Hypoglycemia Protocol Cefazolin Sodium 2 gm in 50 mls @ 100 mls/hr 06/01/19 22:55 06/07/19 06:30 Ancef 2 Gm/D5w 50 Ml IVPB Infused Q8H KAVYA Infusion Insulin Aspart 8 units 06/02/19 08:00 06/07/19 09:28 Novolog SUB-Q 8 units TIDWM KAVYA Administration Insulin Aspart 3 - 6 units 06/02/19 08:00 06/07/19 09:28 Novolog SUB-Q Not Given TIDWM [facility] Protocol Insulin Glargine 15 units 06/01/19 22:10 06/06/19 20:34 Lantus SUB-Q 15 units HS KAVYA Administration Lactulose 30 gm 06/01/19 22:49 Lactulose PO TID PRN CONSTIPATION Lisinopril 20 mg 06/02/19 09:00 06/07/19 09:31 Prinivil PO 20 mg BID KAVYA Administration Oxycodone HCl 10 mg 06/01/19 22:42 06/07/19 00:37 Roxicodone Ir Tablet PO 10 mg Q4H PRN Administration Pain (Scale Score 7-10) Polyethylene Glycol 34 gm 06/07/19 10:37 Miralax PO PRN PRN Constipation Rifampin 600 mg 06/02/19 09:00 06/07/19 09:32 Rifampin PO 07/09/19 09:01 600 mg DAILY KAVYA Administration Rosuvastatin Calcium 20 mg 06/02/19 09:00 06/07/19 09:32 Crestor PO 20 mg DAILY KAVYA Administration Senna 17.2 mg 05/13
--- NOTE | 2019-06-07 12:25 | PC.NURSE ---
Blood sugar for noon 77, spoke with Dr. Peter, do not give noon dose of insulin. Will continue to monitor.
[2019-06-07 12:29] LABS: Glucose Point of Care 77 (65-105)
[2019-06-07 14:00] VITALS: BP 131/65; PULSE 93; RESP 20; TEMP 37.1; O2SAT 99
[2019-06-07 16:44] LABS: Glucose Point of Care 164 (65-105)
[2019-06-07] MEDS: INSULIN GLARGINE (*BKC) 100 UNITS/ML 15 UNITS SUB-Q (20:56)
[2019-06-07 21:05] LABS: Glucose Point of Care 150 (65-105)
[2019-06-07 22:00] VITALS: BP 132/64; PULSE 76; RESP 20; TEMP 36.7; O2SAT 100
[2019-06-08] MEDS: ACETAMINOPHEN 500 MG TABLET 1000 MG PO ×5 (00:04→23:34)
[2019-06-08 06:00] VITALS: BP 158/79; PULSE 78; RESP 99; TEMP 36.6; O2SAT 99
[2019-06-08] MEDS: ceFAZolin 2 GM/D5W 50 ML 2 GM/50 ML BAG IVPB ×3 (06:11→23:33)
[2019-06-08 06:18] LABS: Glucose Point of Care 114 (65-105)
[2019-06-08] MEDS: INSULIN ASPART (*BKC) 100 UNITS/ML 8 UNITS SUB-Q ×2 (07:03→17:09)
[2019-06-08] MEDS: GABAPENTIN 300 MG CAPSULE PO ×3 (07:35→17:10)
[2019-06-08] MEDS: ROSUVASTATIN 10 MG TABLET 20 MG PO (07:35)
[2019-06-08] MEDS: rifAMPin 300 MG CAPSULE 600 MG PO (07:36)
[2019-06-08] MEDS: ASPIRIN 325 MG ENTERIC TABLET PO (07:36)
[2019-06-08] MEDS: lisinopriL 20 MG TABLET PO ×2 (07:37→17:08)
[2019-06-08] MEDS: TAMSULOSIN HCL 0.4 MG CAPSULE PO (07:37)
[2019-06-08] MEDS: CHOLECALCIFEROL 1,000 UNIT TABLET 1000 UNITS PO (07:37)
[2019-06-08] MEDS: hydroCHLOROthiazide 12.5 MG CAPSULE PO ×2 (07:37→17:09)
[2019-06-08 11:30] LABS: Glucose Point of Care 94 (65-105)
[2019-06-08] MEDS: CYCLOBENZAPRINE HCL 10 MG TABLET 20 MG PO ×2 (11:55→21:47)
[2019-06-08] MEDS: FLUCONAZOLE 100 MG TABLET PO (11:55)
--- NOTE | 2019-06-08 13:09 | PC.NURSE ---
updated Dr regarding patient blood sugar noted at 94 for lunch. insulin was not given at lunch per md. continuing to monitor blood sugars. will continue to monitor.
[2019-06-08 14:00] VITALS: BP 146/72; PULSE 98; RESP 20; TEMP 36.8; O2SAT 100
[2019-06-08 16:54] LABS: Glucose Point of Care 190 (65-105)
[2019-06-08] MEDS: INSULIN GLARGINE (*BKC) 100 UNITS/ML 15 UNITS SUB-Q (20:33)
[2019-06-08 20:59] LABS: Glucose Point of Care 179 (65-105)
[2019-06-08 22:00] VITALS: BP 124/63; PULSE 84; RESP 18; TEMP 37.2; O2SAT 100
[2019-06-09 05:35] LABS: Basophils Absolute Auto 0.1 K/mm3 (0.0-0.1); Basophils Percent Auto 1.3 % (0.2-1.2); Eosinophils Absolute Auto 1.2 K/mm3 (0-0.3); Eosinophils Percent Auto 20.9 % (0-4.4); Hemoglobin 8.2 g/dL (14.0-18.0); Immature Granulocyte Absolute 0.01 K/mm3 (0.00-0.031); Immature Granulocyte Percent A 0.2 % (0-0.5); Lymphocytes Percent Auto 16.4 % (18.3-44.2); Mean Corpuscular HGB Conc 30.4 g/dl (32-36); Mean Corpuscular Hemoglobin 26.9 pg (26-34); Mean Corpuscular Volume 88.5 fl (80-100); Mean Platelet Volume 8.5 fl (7.4-10.4); Monocytes Absolute Auto 0.5 K/mm3 (0.1-0.6); Monocytes Percent Auto 8.9 % (2.6-8.5); Neutrophils Absolute Auto 2.9 K/mm3 (1.3-6.7); Neutrophils Percent Auto 52.3 % (45.5-73.1); Platelet Count Result 432 k/mm3 (150-375); Red Blood Count 3.05 M/mm3 (4.6-6.20); Red Cell Distribution Width 16.1 % (11.5-14.5); White Blood Count 5.5 K/mm3 (4.5-10.0)
[2019-06-09 06:00] VITALS: BP 108/81; PULSE 77; RESP 18; TEMP 36.6; O2SAT 99
[2019-06-09] MEDS: ACETAMINOPHEN 500 MG TABLET 1000 MG PO ×4 (06:22→23:37)
[2019-06-09] MEDS: ceFAZolin 2 GM/D5W 50 ML 2 GM/50 ML BAG IVPB ×3 (06:24→23:36)
[2019-06-09] MEDS: CYCLOBENZAPRINE HCL 10 MG TABLET 20 MG PO ×2 (06:33→21:55)
[2019-06-09 07:49] LABS: Glucose Point of Care 97 (65-105)
[2019-06-09] MEDS: GABAPENTIN 300 MG CAPSULE PO ×3 (08:01→17:25)
[2019-06-09] MEDS: ASPIRIN 325 MG ENTERIC TABLET PO (08:01)
[2019-06-09] MEDS: CHOLECALCIFEROL 1,000 UNIT TABLET 1000 UNITS PO (08:02)
[2019-06-09] MEDS: FLUCONAZOLE 100 MG TABLET PO (08:02)
[2019-06-09] MEDS: hydroCHLOROthiazide 12.5 MG CAPSULE PO ×2 (08:02→17:26)
[2019-06-09] MEDS: lisinopriL 20 MG TABLET PO ×2 (08:02→18:52)
[2019-06-09] MEDS: TAMSULOSIN HCL 0.4 MG CAPSULE PO (08:02)
[2019-06-09] MEDS: rifAMPin 300 MG CAPSULE 600 MG PO (08:02)
[2019-06-09] MEDS: ROSUVASTATIN 10 MG TABLET 20 MG PO (08:03)
[2019-06-09] MEDS: INSULIN ASPART (*BKC) 100 UNITS/ML 8 UNITS SUB-Q ×3 (08:07→17:27)
[2019-06-09 12:19] LABS: Glucose Point of Care 110 (65-105)
--- NOTE | 2019-06-09 13:52 | WPDNEURORHBP ---
Subjective Date/time seen: 06/09/19 13:52 Interval history: this 63-year-old diabetic gentleman is here status post surgery for T10-T11 pathological fracture he has had multiple surgery in a for the diagnosis of the osteomyelitis and he is on IV antibiotics for a total of 6 weeks from his last surgery which was on May 24 which was most likely will last till July 06, he is tolerating the therapy and IV antibiotics and stable denies any headache nausea vomiting chest pain shortness of breath fever chills or sore throat Review of Systems Review of Systems: All systems reviewed & are unremarkable except as noted in HPI and below Functional Status Ambulation Ability Ability to Ambulate 10 Feet: Maximum Assistance X 1 Ambulation Assistive Devices: Parallel Bars and Walker, Wheeled Transfers Ability Ability to Transfer In/Out of Chair: Minimum Assistance X 1 Exam Const: General: comfortable and no acute distress HENMT: General nose exam: Normal nares present Mouth: Yes moist mucous membranes Eyes: General: appearance normal, both eyes and all related structures Neck: Neck: supple and no JVD Resp: Effort & Inspection: normal respiratory effort Auscultation: clear to auscultation bilaterally Cardio: Rate: regular rate Rhythm: regular rhythm GI: GI Palp: Yes Soft to palpation Auscultation: normal bowel sounds Skin: General skin exam: normal color and no rashes or lesions noted Neuro: Other: patient's mental status is normal cranial mentioned only does have evidence of peripheral neuropathy and also evidence of spinal cord dysfunction with generalized weakness for the lower extremities much weaker however he is making progress and is well able to walk 12 steps on the pedal well are so overall he is improving and making progress Extrem: General: normal to inspection Psych: Mental Status: mental status grossly normal Objective Data Vital Signs Vital Signs: Vital Signs - 24 hr 06/08/19 14:00 06/08/19 22:00 06/09/19 06:00 Temperature 36.8 C 37.2 C 36.6 C Pulse Rate 98 84 77 Respiratory Rate 20 18 18 Blood Pressure 146/72 H 124/63 108/81 Pulse Oximetry 100 100 99 Intake/Output Intake/Output: Intake & Output 06/06/19 06/07/19 06/08/19 06/09/19 23:59 23:59 23:59 23:59 Intake Total 457 650 4425 580 Balance 885 412 0055 580 Meds/Results Medications: Active Medications Generic Name Dose Route Start Last Admin Trade Name Vernq PRN Reason Stop Dose Admin Acetaminophen 1,000 mg 06/03/19 18:00 06/09/19 12:57 Tylenol Tablet PO 1,000 mg Q6HR KAVYA Administration Aspirin 325 mg 06/02/19 09:00 06/09/19 08:01 Aspirin Ec PO 325 mg DAILY KAVYA Administration Calcium Carbonate 500 mg 06/01/19 22:42 Tums PO DAILY PRN Heartburn Cyclobenzaprine HCl 20 mg 06/01/19 23:20 06/09/19 06:33 Flexeril PO 20 mg TID PRN Administration Spasms Dextrose 12.5 gm 06/01/19 21:57 Dextrose 50% Syringe IV PUSH PRN PRN Hypoglycemia Protocol Fluconazole 100 mg 06/08/19 09:00 06/09/19 08:02 Diflucan Tablet PO 100 mg QAM KAVYA Administration Gabapentin 300 mg 06/01/19 22:50 06/09/19 12:58 Neurontin PO 300 mg TID KAVYA Administration Glucagon 1 mg 06/01/19 21:57 Glucagon For Inj IM PRN PRN Hypoglycemia Protocol Glucose 15 gm 06/01/19 21:57 Glutose 15 PO PRN PRN Hypoglycemia Protocol Hydrochlorothiazide 12.5 mg 06/02/19 09:00 06/09/19 08:02 Hydrochlorothiazide PO 12.5 mg BID KAVYA Administration Dextrose 1,000 mls @ 100 mls/hr 06/01/19 21:57 Dextrose 5% 1,000 Ml IVPB PRN PRN Hypoglycemia Protocol Cefazolin Sodium 2 gm in 50 mls @ 100 mls/hr 06/01/19 22:55 06/09/19 07:35 Ancef 2 Gm/D5w 50 Ml IVPB 06/29/19 22:56 Infused Q8H KAVYA Infusion Insulin Aspart 8 units 06/02/19 08:00 06/09/19 12:58 Novolog SUB-Q 8 units TIDWM KAVYA Administration Insulin Aspa
[2019-06-09 14:00] VITALS: BP 113/64; PULSE 102; RESP 20; TEMP 37.2; O2SAT 100
[2019-06-09 16:00] VITALS: PULSE 102; RESP 20; O2SAT 100
[2019-06-09 17:04] LABS: Glucose Point of Care 75 (65-105)
[2019-06-09 22:00] VITALS: BP 118/67; PULSE 88; RESP 18; TEMP 37.7; O2SAT 99
[2019-06-09 22:03] LABS: Glucose Point of Care 87 (65-105)
[2019-06-10 06:00] VITALS: BP 154/80; PULSE 74; RESP 18; TEMP 37; O2SAT 99
[2019-06-10] MEDS: ceFAZolin 2 GM/D5W 50 ML 2 GM/50 ML BAG IVPB ×3 (06:16→21:30)
[2019-06-10] MEDS: ACETAMINOPHEN 500 MG TABLET 1000 MG PO ×4 (06:17→23:39)
[2019-06-10 07:03] LABS: Glucose Point of Care 154 (65-105)
[2019-06-10 08:00] VITALS: PULSE 74; RESP 18; O2SAT 99
[2019-06-10] MEDS: hydroCHLOROthiazide 12.5 MG CAPSULE PO ×2 (10:25→16:25)
[2019-06-10] MEDS: FLUCONAZOLE 100 MG TABLET PO (10:25)
[2019-06-10] MEDS: ROSUVASTATIN 10 MG TABLET 20 MG PO (10:25)
[2019-06-10] MEDS: ASPIRIN 325 MG ENTERIC TABLET PO (10:26)
[2019-06-10] MEDS: rifAMPin 300 MG CAPSULE 600 MG PO (10:26)
[2019-06-10] MEDS: CHOLECALCIFEROL 1,000 UNIT TABLET 1000 UNITS PO (10:27)
[2019-06-10] MEDS: GABAPENTIN 300 MG CAPSULE PO ×3 (10:28→16:24)
[2019-06-10] MEDS: lisinopriL 20 MG TABLET PO ×2 (10:28→16:30)
[2019-06-10] MEDS: TAMSULOSIN HCL 0.4 MG CAPSULE PO (10:28)
[2019-06-10] MEDS: CYCLOBENZAPRINE HCL 10 MG TABLET 20 MG PO ×2 (10:31→23:37)
[2019-06-10] MEDS: INSULIN ASPART (*BKC) 100 UNITS/ML 8 UNITS SUB-Q ×2 (11:05→12:40)
[2019-06-10] MEDS: INSULIN ASPART (*BKC) 100 UNITS/ML SUB-Q (12:39)
[2019-06-10 13:15] LABS: Glucose Point of Care 221 (65-105)
--- NOTE | 2019-06-10 13:33 | WPDNEURORHBP ---
Subjective Date/time seen: 06/10/19 13:33 Interval history: this 63-year-old gentleman who is a diabetic is here after having had multiple procedures performed on his spine particularly fixing of the T10-T11 fracture and also had osteomyelitis and bacteremia for which receiving IV antibiotic for long-term is tolerating the antibiotics quite well without any apparent side effects his labs have been quite stable he denies any headache nausea vomiting chest pain shortness of breath fever chills and sore throat he is happy that he was able to walk 70 feet today of course with assistance and a walker Review of Systems Review of Systems: All systems reviewed & are unremarkable except as noted in HPI and below Functional Status Ambulation Ability Ability to Ambulate 10 Feet: Moderate Assistance X 1 Ability to Ambulate 50 Feet With 2 Turns: Moderate Assistance X 1 Ambulation Assistive Devices: Walker, Wheeled Transfers Ability Ability to Transfer In/Out of Chair: Minimum Assistance X 1 Exam Const: General: comfortable and no acute distress HENMT: General nose exam: Normal nares present Mouth: Yes moist mucous membranes Eyes: General: appearance normal, both eyes and all related structures Neck: Neck: supple and no JVD Resp: Effort & Inspection: normal respiratory effort Auscultation: clear to auscultation bilaterally Cardio: Rate: regular rate Rhythm: regular rhythm GI: GI Palp: Yes Soft to palpation Auscultation: normal bowel sounds Back/Spine/Pelvis: Other: patient is a incisions at the back looks clean and healthy no drainage is noted Skin: General skin exam: normal color and no rashes or lesions noted Neuro: Other: patient's mental status is normal cranial examination is normal is motor strength is coming back he does have evidence of significant peripheral peripheral neuropathy with the absence of reflexes in the lower extremities in particular with the sensory deficit more so in the lower extremities than the upper extremities but overall he is definitely improved on I believe he still does have a component of the spinal cord dysfunction Extrem: General: normal to inspection Psych: Mental Status: mental status grossly normal Objective Data Vital Signs Vital Signs: Vital Signs - 24 hr 06/09/19 14:00 06/09/19 16:00 06/09/19 22:00 Temperature 37.2 C 37.7 C H Pulse Rate 102 H 102 H 88 Respiratory Rate 20 20 18 Blood Pressure 113/64 118/67 Pulse Oximetry 100 100 99 06/10/19 06:00 Temperature 37.0 C Pulse Rate 74 Respiratory Rate 18 Blood Pressure 154/80 H Pulse Oximetry 99 Intake/Output Intake/Output: Intake & Output 06/07/19 06/08/19 06/09/19 06/10/19 23:59 23:59 23:59 23:59 Intake Total 910 1180 870 530 Balance 910 1180 870 530 Meds/Results Medications: Active Medications Generic Name Dose Route Start Last Admin Trade Name Freq PRN Reason Stop Dose Admin Acetaminophen 1,000 mg 06/03/19 18:00 06/10/19 12:40 Tylenol Tablet PO 1,000 mg Q6HR KAVYA Administration Aspirin 325 mg 06/02/19 09:00 06/10/19 10:26 Aspirin Ec PO 325 mg DAILY KAVYA Administration Calcium Carbonate 500 mg 06/01/19 22:42 Tums PO DAILY PRN Heartburn Cyclobenzaprine HCl 20 mg 06/01/19 23:20 06/10/19 10:31 Flexeril PO 20 mg TID PRN Administration Spasms Dextrose 12.5 gm 06/01/19 21:57 Dextrose 50% Syringe IV PUSH PRN PRN Hypoglycemia Protocol Fluconazole 100 mg 06/08/19 09:00 06/10/19 10:25 Diflucan Tablet PO 100 mg QAM KAVYA Administration Gabapentin 300 mg 06/01/19 22:50 06/10/19 12:41 Neurontin PO 300 mg TID KAVYA Administration Glucagon 1 mg 06/01/19 21:57 Glucagon For Inj IM PRN PRN Hypoglycemia Protocol Glucose 15 gm 06/01/19 21:57 Glutose 15 PO PRN PRN Hypoglycemia Protocol Hydrochlorothiazide 12.5 mg 06/02/19 09:00 06/10/19 10:25 Hydrochlorothiazide PO 12.
[2019-06-10 14:00] VITALS: BP 123/71; PULSE 88; RESP 20; TEMP 37.2; O2SAT 99
[2019-06-10 17:52] LABS: Glucose 144 mg/dL (75-110)
[2019-06-10 18:18] LABS: Glucose Point of Care 57 (65-105)
[2019-06-10 18:18] LABS: Glucose Point of Care 105 (65-105)
[2019-06-10 21:27] LABS: Glucose Point of Care 251 (65-105)
[2019-06-10 22:00] VITALS: BP 133/71; PULSE 83; RESP 18; TEMP 36.8; O2SAT 100
[2019-06-11 06:00] VITALS: BP 166/80; PULSE 81; RESP 16; TEMP 36.6; O2SAT 100
[2019-06-11] MEDS: ceFAZolin 2 GM/D5W 50 ML 2 GM/50 ML BAG IVPB ×3 (06:00→20:50)
[2019-06-11] MEDS: ACETAMINOPHEN 500 MG TABLET 1000 MG PO ×3 (06:05→17:10)
[2019-06-11 06:56] LABS: Glucose Point of Care 166 (65-105)
[2019-06-11 07:05] LABS: Albumin Level 3.3 g/dL (3.5-5.1); Alkaline Phosphatase 159 U/L (38-126); Aspartate Amino Transferase 17 U/L (17-59); Bilirubin,Total 0.2 mg/dL (0.2-1.3); Blood Urea Nitrogen 17 mg/dL (9-20); Calcium 9.7 mg/dL (8.4-10.2); Carbon Dioxide 29 mmol/L (22-30); Chloride 101 mmol/L (98-107); Estimated CRCL calculation 109 ml/min; Estimated Glomerular Filt Rate > 60; Glucose 182 mg/dL (75-110); Potassium 4.2 mmol/L (3.4-5.0); Sodium 135 mmol/L (137-145)
[2019-06-11 07:16] LABS: Alanine Aminotransferase < 6 U/L (4-50)
[2019-06-11] MEDS: lisinopriL 20 MG TABLET PO ×2 (09:31→17:11)
[2019-06-11] MEDS: ASPIRIN 325 MG ENTERIC TABLET PO (09:32)
[2019-06-11] MEDS: TAMSULOSIN HCL 0.4 MG CAPSULE PO (09:32)
[2019-06-11] MEDS: FLUCONAZOLE 100 MG TABLET PO (09:32)
[2019-06-11] MEDS: rifAMPin 300 MG CAPSULE 600 MG PO (09:32)
[2019-06-11] MEDS: CHOLECALCIFEROL 1,000 UNIT TABLET 1000 UNITS PO (09:32)
[2019-06-11] MEDS: CYCLOBENZAPRINE HCL 10 MG TABLET 20 MG PO (09:32)
[2019-06-11] MEDS: GABAPENTIN 300 MG CAPSULE PO ×3 (09:32→17:10)
[2019-06-11] MEDS: ROSUVASTATIN 10 MG TABLET 20 MG PO (09:32)
[2019-06-11] MEDS: hydroCHLOROthiazide 12.5 MG CAPSULE PO ×2 (09:34→17:10)
[2019-06-11] MEDS: INSULIN ASPART (*BKC) 100 UNITS/ML 8 UNITS SUB-Q ×3 (09:38→17:09)
[2019-06-11 11:43] LABS: Glucose Point of Care 189 (65-105)
--- NOTE | 2019-06-11 12:03 | WPDNEURORHBP ---
Subjective Date/time seen: 06/11/19 12:03 Interval history: this 63-year-old diabetic gentleman is here post multiple spinal surgeries including the fixing of T10-T11 pathological fracture he is improving quite a bit in the rehab and was able to walk significantly more in the past couple of days denies any headache nausea vomiting chest pain or shortness of breath The patient's appointment with the surgeon has been scheduled post discharge and he is happy with it because he did not want to travel to [facility] while the COVID-19 is going on Review of Systems Review of Systems: All systems reviewed & are unremarkable except as noted in HPI and below Functional Status Ambulation Ability Ability to Ambulate 10 Feet: Minimum Assistance X 1 Ability to Ambulate 50 Feet With 2 Turns: Moderate Assistance X 1 Ambulation Assistive Devices: Walker, Wheeled Transfers Ability Ability to Transfer In/Out of Chair: Minimum Assistance X 1 Exam Const: General: comfortable and no acute distress HENMT: General nose exam: Normal nares present Mouth: Yes moist mucous membranes Eyes: General: appearance normal, both eyes and all related structures Neck: Neck: supple and no JVD Resp: Effort & Inspection: normal respiratory effort Auscultation: clear to auscultation bilaterally Cardio: Rate: regular rate Rhythm: regular rhythm GI: GI Palp: Yes Soft to palpation Auscultation: normal bowel sounds Skin: General skin exam: normal color and no rashes or lesions noted Neuro: Other: patient's mental status is normal cranial examination is normal he does have evidence of peripheral neuropathy and spinal cord dysfunction however is significantly improving and walking much better of course with the assistance and with the walker he is receiving the IV antibiotics as scheduled Extrem: General: normal to inspection Psych: Mental Status: mental status grossly normal Objective Data Vital Signs Vital Signs: Vital Signs - 24 hr 06/10/19 14:00 06/10/19 22:00 06/11/19 06:00 Temperature 37.2 C 36.8 C 36.6 C Pulse Rate 88 83 81 Respiratory Rate 20 18 16 Blood Pressure 123/71 133/71 166/80 H Pulse Oximetry 99 100 100 Intake/Output Intake/Output: Intake & Output 06/08/19 06/09/19 06/10/19 06/11/19 23:59 23:59 23:59 23:59 Intake Total 1180 870 920 410 Balance 1180 870 920 410 Meds/Results Medications: Active Medications Generic Name Dose Route Start Last Admin Trade Name Freq PRN Reason Stop Dose Admin Acetaminophen 1,000 mg 06/03/19 18:00 06/11/19 06:05 Tylenol Tablet PO 1,000 mg Q6HR KAVYA Administration Aspirin 325 mg 06/02/19 09:00 06/11/19 09:32 Aspirin Ec PO 325 mg DAILY KAVYA Administration Calcium Carbonate 500 mg 06/01/19 22:42 Tums PO DAILY PRN Heartburn Cyclobenzaprine HCl 20 mg 06/01/19 23:20 06/11/19 09:32 Flexeril PO 20 mg TID PRN Administration Spasms Dextrose 12.5 gm 06/01/19 21:57 Dextrose 50% Syringe IV PUSH PRN PRN Hypoglycemia Protocol Fluconazole 100 mg 06/08/19 09:00 06/11/19 09:32 Diflucan Tablet PO 100 mg QAM KAVYA Administration Gabapentin 300 mg 06/01/19 22:50 06/11/19 09:32 Neurontin PO 300 mg TID KAVYA Administration Glucagon 1 mg 06/01/19 21:57 Glucagon For Inj IM PRN PRN Hypoglycemia Protocol Glucose 15 gm 06/01/19 21:57 Glutose 15 PO PRN PRN Hypoglycemia Protocol Hydrochlorothiazide 12.5 mg 06/02/19 09:00 06/11/19 09:34 Hydrochlorothiazide PO 12.5 mg BID KAVYA Administration Dextrose 1,000 mls @ 100 mls/hr 06/01/19 21:57 Dextrose 5% 1,000 Ml IVPB PRN PRN Hypoglycemia Protocol Cefazolin Sodium 2 gm in 50 mls @ 100 mls/hr 06/01/19 22:55 06/11/19 07:00 Ancef 2 Gm/D5w 50 Ml IVPB 06/29/19 22:56 Infused Q8H KAVYA Infusion Insulin Aspart 8 units 06/02/19 08:00 06/11/19 09:38 Novolog SUB-Q 8 units TIDWM [facility]
--- NOTE | 2019-06-11 12:56 | PCDIET ---
Nutrition Follow-Up Complete: Nutrition Diagnosis: Altered nutrition related labs related to diabetes mellitus as evidenced by HgbA1C of 6.7%. Nutrition Goal: Patient will continue to consume 75% of meals or greater. Goal met. Patient consuming 75-100% of meals on diabetic diet which is appropriate. Patient reports good appetite without c/o or concerns. Spoke with patient via phone due to COVID-19 precautions. Last recorded weight is 82.1 kg. Recommend obtaining new weight. Bowel Motility: Last documented bowel movement on 06/08/19; however, patient without GI c/o on Lactulose. Labs Reviewed: Glu (182), Na (135), Alb (3.3) Meds Noted: Ancef, Hydrochlorothiazide, Lantus, Lactulose, Diflucan, Novolog, Miralax prn, Senna, Vitamin D Additional Notes: Incisions to back and left flank. Buttocks macerated. Will continue to monitor with same goals. Nutrition Monitoring and Evaluation: Follow up every 7 days.
[2019-06-11 14:00] VITALS: BP 120/77; PULSE 103; RESP 19; TEMP 36.8; O2SAT 100
[2019-06-11 16:58] LABS: Glucose Point of Care 189 (65-105)
[2019-06-11 21:02] LABS: Glucose Point of Care 236 (65-105)
[2019-06-11] MEDS: INSULIN GLARGINE (*BKC) 100 UNITS/ML 15 UNITS SUB-Q (21:03)
[2019-06-11 22:00] VITALS: BP 140/74; PULSE 87; RESP 19; TEMP 36.9; O2SAT 99
[2019-06-12] MEDS: ACETAMINOPHEN 500 MG TABLET 1000 MG PO ×5 (00:09→23:18)
[2019-06-12] MEDS: CYCLOBENZAPRINE HCL 10 MG TABLET 20 MG PO (00:09)
[2019-06-12 06:00] VITALS: BP 144/81; PULSE 76; RESP 18; TEMP 37; O2SAT 100
[2019-06-12] MEDS: ceFAZolin 2 GM/D5W 50 ML 2 GM/50 ML BAG IVPB ×3 (06:11→23:17)
[2019-06-12 06:44] LABS: Glucose Point of Care 176 (65-105)
[2019-06-12] MEDS: INSULIN ASPART (*BKC) 100 UNITS/ML 8 UNITS SUB-Q ×3 (07:17→16:56)
[2019-06-12] MEDS: rifAMPin 300 MG CAPSULE 600 MG PO (07:21)
[2019-06-12] MEDS: ROSUVASTATIN 10 MG TABLET 20 MG PO (07:22)
[2019-06-12] MEDS: hydroCHLOROthiazide 12.5 MG CAPSULE PO ×2 (07:22→16:55)
[2019-06-12] MEDS: GABAPENTIN 300 MG CAPSULE PO ×3 (07:22→16:55)
[2019-06-12] MEDS: lisinopriL 20 MG TABLET PO ×2 (07:22→16:55)
[2019-06-12] MEDS: FLUCONAZOLE 100 MG TABLET PO (07:22)
[2019-06-12] MEDS: TAMSULOSIN HCL 0.4 MG CAPSULE PO (07:22)
[2019-06-12] MEDS: CHOLECALCIFEROL 1,000 UNIT TABLET 1000 UNITS PO (07:22)
[2019-06-12] MEDS: ASPIRIN 325 MG ENTERIC TABLET PO (07:22)
[2019-06-12 12:11] LABS: Glucose Point of Care 121 (65-105)
[2019-06-12 14:00] VITALS: BP 123/67; PULSE 94; RESP 17; TEMP 36.9; O2SAT 100
--- NOTE | 2019-06-12 14:50 | WPDNEURORHBP ---
Subjective Date/time seen: 06/12/19 14:50 Interval history: this 63-year-old diabetic gentleman is here after having had multiple surgeries on his spine including the T10-T11 pathological fracture his doing remarkably well in the therapy and has walked at least 150 feet or more of course with the assistance and the walker he denies any headache nausea vomiting chest pain and fever chills or sore throat his has been in touch with the surgeon at the [facility] how and his appointment will be in couple of weeks post discharge the incisions are clean and healthy there is no sign of infection on clinical grounds his already on antibiotics and doing fairly well Review of Systems Review of Systems: All systems reviewed & are unremarkable except as noted in HPI and below Functional Status Ambulation Ability Ability to Ambulate 10 Feet: Minimum Assistance X 1 Ability to Ambulate 50 Feet With 2 Turns: Minimum Assistance X 1 Ability to Ambulate 150 Feet: Minimum Assistance X 1 Ambulation Assistive Devices: Walker, Wheeled Transfers Ability Ability to Transfer In/Out of Chair: Minimum Assistance X 1 Exam Const: General: comfortable and no acute distress HENMT: General nose exam: Normal nares present Mouth: Yes moist mucous membranes Eyes: General: appearance normal, both eyes and all related structures Neck: Neck: supple and no JVD Resp: Effort & Inspection: normal respiratory effort Auscultation: clear to auscultation bilaterally Cardio: Rate: regular rate Rhythm: regular rhythm Back/Spine/Pelvis: Other: the incisions in the back or clean and healthy there is no swelling there is no redness there is nothing to suggest and clinical sign of local or generalized infection Skin: General skin exam: normal color and no rashes or lesions noted Neuro: Other: patient remains with normal speech and language functions normal cranial examination improving strength in the lower extremities in particular with of course evidence of peripheral neuropathy as it has been mentioned before but there is a definite and significant improvement in his overall neurological state Extrem: General: normal to inspection Psych: Mental Status: mental status grossly normal Objective Data Vital Signs Vital Signs: Vital Signs - 24 hr 06/11/19 22:00 06/12/19 06:00 Temperature 36.9 C 37.0 C Pulse Rate 87 76 Respiratory Rate 19 18 Blood Pressure 140/74 144/81 H Pulse Oximetry 99 100 Intake/Output Intake/Output: Intake & Output 06/09/19 06/10/19 06/11/1906/11/20 23:59 23:59 23:59 23:59 Intake Total 870 920 990 530 Balance 870 920 990 530 Meds/Results Medications: Active Medications Generic Name Dose Route Start Last Admin Trade Name Freq PRN Reason Stop Dose Admin Acetaminophen 1,000 mg 06/03/19 18:00 06/12/19 12:01 Tylenol Tablet PO 1,000 mg Q6HR KAVYA Administration Aspirin 325 mg 06/02/19 09:00 06/12/19 07:22 Aspirin Ec PO 325 mg DAILY KAVYA Administration Calcium Carbonate 500 mg 06/01/19 22:42 Tums PO DAILY PRN Heartburn Cyclobenzaprine HCl 20 mg 06/01/19 23:20 06/12/19 00:09 Flexeril PO 20 mg TID PRN Administration Spasms Dextrose 12.5 gm 06/01/19 21:57 Dextrose 50% Syringe IV PUSH PRN PRN Hypoglycemia Protocol Fluconazole 100 mg 06/08/19 09:00 06/12/19 07:22 Diflucan Tablet PO 100 mg QAM KAVYA Administration Gabapentin 300 mg 06/01/19 22:50 06/12/19 12:01 Neurontin PO 300 mg TID KAVYA Administration Glucagon 1 mg 06/01/19 21:57 Glucagon For Inj IM PRN PRN Hypoglycemia Protocol Glucose 15 gm 06/01/19 21:57 Glutose 15 PO PRN PRN Hypoglycemia Protocol Hydrochlorothiazide 12.5 mg 06/02/19 09:00 06/12/19 07:22 Hydrochlorothiazide PO 12.5 mg BID KAVYA Administration Dextrose 1,000 mls @ 100 mls/hr 06/01/19 21:57 Dextrose 5% 1,000 Ml IVPB PRN ND
[2019-06-12 16:39] LABS: Glucose Point of Care 144 (65-105)
[2019-06-12] MEDS: INSULIN GLARGINE (*BKC) 100 UNITS/ML 15 UNITS SUB-Q (20:46)
[2019-06-12 21:24] LABS: Glucose Point of Care 166 (65-105)
[2019-06-12 22:00] VITALS: BP 144/68; PULSE 77; RESP 18; TEMP 37.1; O2SAT 100
[2019-06-13] MEDS: CYCLOBENZAPRINE HCL 10 MG TABLET 20 MG PO ×3 (01:52→21:24)
[2019-06-13 06:00] VITALS: BP 173/87; PULSE 75; RESP 19; TEMP 36.8; O2SAT 100
[2019-06-13] MEDS: ceFAZolin 2 GM/D5W 50 ML 2 GM/50 ML BAG IVPB ×3 (06:43→23:25)
[2019-06-13 07:03] LABS: Glucose Point of Care 116 (65-105)
[2019-06-13] MEDS: INSULIN ASPART (*BKC) 100 UNITS/ML 8 UNITS SUB-Q ×3 (08:21→17:40)
[2019-06-13] MEDS: lisinopriL 20 MG TABLET PO ×2 (08:23→17:43)
[2019-06-13] MEDS: FLUCONAZOLE 100 MG TABLET PO (08:24)
[2019-06-13] MEDS: rifAMPin 300 MG CAPSULE 600 MG PO (08:24)
[2019-06-13] MEDS: GABAPENTIN 300 MG CAPSULE PO ×3 (08:24→17:41)
[2019-06-13] MEDS: hydroCHLOROthiazide 12.5 MG CAPSULE PO ×2 (08:24→17:42)
[2019-06-13] MEDS: TAMSULOSIN HCL 0.4 MG CAPSULE PO (08:24)
[2019-06-13] MEDS: ROSUVASTATIN 10 MG TABLET 20 MG PO (08:25)
[2019-06-13] MEDS: ASPIRIN 325 MG ENTERIC TABLET PO (08:25)
[2019-06-13] MEDS: CHOLECALCIFEROL 1,000 UNIT TABLET 1000 UNITS PO (08:25)
[2019-06-13 09:26] VITALS: PULSE 74; RESP 18
[2019-06-13 12:18] LABS: Glucose Point of Care 179 (65-105)
[2019-06-13 14:00] VITALS: BP 119/56; PULSE 97; RESP 16; TEMP 36.6; O2SAT 100
[2019-06-13 17:04] LABS: Glucose Point of Care 145 (65-105)
[2019-06-13] MEDS: INSULIN GLARGINE (*BKC) 100 UNITS/ML 15 UNITS SUB-Q (21:30)
[2019-06-13 21:47] LABS: Glucose Point of Care 160 (65-105)
[2019-06-13 22:00] VITALS: BP 134/67; PULSE 86; RESP 18; TEMP 37.3; O2SAT 98
[2019-06-13] MEDS: ACETAMINOPHEN 500 MG TABLET 1000 MG PO (23:27)
[2019-06-14 06:00] VITALS: BP 146/80; PULSE 80; RESP 18; TEMP 37.1; O2SAT 100
[2019-06-14 06:39] LABS: Glucose Point of Care 120 (65-105)
[2019-06-14] MEDS: ceFAZolin 2 GM/D5W 50 ML 2 GM/50 ML BAG IVPB ×3 (06:41→20:54)
[2019-06-14] MEDS: ACETAMINOPHEN 500 MG TABLET 1000 MG PO ×3 (06:42→23:54)
[2019-06-14] MEDS: CYCLOBENZAPRINE HCL 10 MG TABLET 20 MG PO ×2 (07:36→20:57)
[2019-06-14] MEDS: INSULIN ASPART (*BKC) 100 UNITS/ML 8 UNITS SUB-Q ×3 (07:37→18:13)
[2019-06-14] MEDS: lisinopriL 20 MG TABLET PO ×2 (09:19→18:11)
[2019-06-14 09:20] VITALS: PULSE 88; RESP 16; O2SAT 99
[2019-06-14] MEDS: CHOLECALCIFEROL 1,000 UNIT TABLET 1000 UNITS PO (09:20)
[2019-06-14] MEDS: FLUCONAZOLE 100 MG TABLET PO (09:20)
[2019-06-14] MEDS: GABAPENTIN 300 MG CAPSULE PO ×3 (09:20→18:10)
[2019-06-14] MEDS: rifAMPin 300 MG CAPSULE 600 MG PO (09:20)
[2019-06-14] MEDS: ASPIRIN 325 MG ENTERIC TABLET PO (09:20)
[2019-06-14] MEDS: ROSUVASTATIN 10 MG TABLET 20 MG PO (09:20)
[2019-06-14] MEDS: TAMSULOSIN HCL 0.4 MG CAPSULE PO (09:21)
[2019-06-14 12:15] LABS: Glucose Point of Care 207 (65-105)
[2019-06-14] MEDS: hydroCHLOROthiazide 12.5 MG CAPSULE PO ×2 (12:28→18:11)
[2019-06-14] MEDS: INSULIN ASPART (*BKC) 100 UNITS/ML SUB-Q (12:30)
[2019-06-14 15:25] VITALS: BP 145/73; PULSE 88; RESP 16; TEMP 37.3; O2SAT 99
[2019-06-14 16:52] LABS: Glucose Point of Care 115 (65-105)
--- NOTE | 2019-06-14 18:41 | WPDNEURORHBP ---
Subjective Date/time seen: 06/14/19 18:41 Interval history: this 63-year-old the diabetic male is here post multiple surgery including the pathological fracture at T10 and T11 and also spinal cord dysfunction has done remarkably well in the acute rehab receiving the antibiotics and the areas of the surgical site are clean and healthy denies any fever chills sore throat headache nausea vomiting Review of Systems Review of Systems: All systems reviewed & are unremarkable except as noted in HPI and below Functional Status Ambulation Ability Ability to Ambulate 10 Feet: Minimum Assistance X 1 Ability to Ambulate 50 Feet With 2 Turns: Minimum Assistance X 1 Ability to Ambulate 150 Feet: Minimum Assistance X 1 Ambulation Assistive Devices: Walker, Wheeled Transfers Ability Ability to Transfer In/Out of Chair: Minimum Assistance X 1 Exam Const: General: comfortable and no acute distress HENMT: General nose exam: Normal nares present Mouth: Yes moist mucous membranes Eyes: General: appearance normal, both eyes and all related structures Neck: Neck: supple and no JVD Resp: Effort & Inspection: normal respiratory effort Auscultation: clear to auscultation bilaterally Cardio: Rate: regular rate Rhythm: regular rhythm GI: GI Palp: Yes Soft to palpation Auscultation: normal bowel sounds Skin: General skin exam: normal color and no rashes or lesions noted Neuro: Other: patient's mental status is normal cranial examination normal he does have evidence of peripheral neuropathy and probably spinal cord dysfunction however the strength in the lower extremities significantly improved and his walking much better except at the proximal musculature is still weak Extrem: General: normal to inspection Psych: Mental Status: mental status grossly normal Objective Data Vital Signs Vital Signs: Vital Signs - 24 hr 06/13/19 22:00 06/14/19 06:00 06/14/19 09:20 Temperature 37.3 C 37.1 C Pulse Rate 86 80 88 Respiratory Rate 18 18 16 Blood Pressure 134/67 146/80 H Pulse Oximetry 98 100 99 06/14/19 15:25 Temperature 37.3 C Pulse Rate 88 Respiratory Rate 16 Blood Pressure 145/73 H Pulse Oximetry 99 Intake/Output Intake/Output: Intake & Output 06/11/19 06/12/19 06/13/19 06/14/19 23:59 23:59 23:59 23:59 Intake Total 990 870 870 770 Balance 990 870 870 770 Meds/Results Medications: Active Medications Generic Name Dose Route Start Last Admin Trade Name Hali PRN Reason Stop Dose Admin Acetaminophen 1,000 mg 06/03/19 18:00 06/14/19 18:12 Tylenol Tablet PO Not Given Q6HR KAVYA Aspirin 325 mg 06/02/19 09:00 06/14/19 09:20 Aspirin Ec PO 325 mg DAILY KAVYA Administration Calcium Carbonate 500 mg 06/01/19 22:42 Tums PO DAILY PRN Heartburn Cyclobenzaprine HCl 20 mg 06/01/19 23:20 06/14/19 07:36 Flexeril PO 20 mg TID PRN Administration Spasms Dextrose 12.5 gm 06/01/19 21:57 Dextrose 50% Syringe IV PUSH PRN PRN Hypoglycemia Protocol Fluconazole 100 mg 06/08/19 09:00 06/14/19 09:20 Diflucan Tablet PO 100 mg QAM KAVYA Administration Gabapentin 300 mg 06/01/19 22:50 06/14/19 18:10 Neurontin PO 300 mg TID KAVYA Administration Glucagon 1 mg 06/01/19 21:57 Glucagon For Inj IM PRN PRN Hypoglycemia Protocol Glucose 15 gm 06/01/19 21:57 Glutose 15 PO PRN PRN Hypoglycemia Protocol Hydrochlorothiazide 12.5 mg 06/02/19 09:00 06/14/19 18:11 Hydrochlorothiazide PO 12.5 mg BID KAVYA Administration Dextrose 1,000 mls @ 100 mls/hr 06/01/19 21:57 Dextrose 5% 1,000 Ml IVPB PRN PRN Hypoglycemia Protocol Cefazolin Sodium 2 gm in 50 mls @ 100 mls/hr 06/01/19 22:55 06/14/19 15:11 Ancef 2 Gm/D5w 50 Ml IVPB 06/29/19 22:56 100 mls/hr Q8H KAVYA Administration Insulin Aspart 8 units 06/02/19 08:00 06/14/19 18:13 Novolog SUB-Q 8 units TIDWM KAVYA Admin
[2019-06-14 21:03] LABS: Glucose Point of Care 159 (65-105)
[2019-06-14] MEDS: INSULIN GLARGINE (*BKC) 100 UNITS/ML 15 UNITS SUB-Q (21:06)
[2019-06-14 22:00] VITALS: BP 120/67; PULSE 83; RESP 18; TEMP 37.3; O2SAT 99
[2019-06-15 06:00] VITALS: BP 143/75; PULSE 76; RESP 19; TEMP 36.8; O2SAT 99
[2019-06-15] MEDS: ceFAZolin 2 GM/D5W 50 ML 2 GM/50 ML BAG IVPB ×3 (06:00→20:56)
[2019-06-15] MEDS: ACETAMINOPHEN 500 MG TABLET 1000 MG PO ×3 (06:01→18:08)
[2019-06-15 06:26] LABS: Glucose Point of Care 122 (65-105)
[2019-06-15] MEDS: CYCLOBENZAPRINE HCL 10 MG TABLET 20 MG PO ×2 (08:49→20:57)
[2019-06-15] MEDS: INSULIN ASPART (*BKC) 100 UNITS/ML 8 UNITS SUB-Q ×3 (08:51→18:08)
[2019-06-15] MEDS: ASPIRIN 325 MG ENTERIC TABLET PO (08:52)
[2019-06-15] MEDS: GABAPENTIN 300 MG CAPSULE PO ×3 (08:53→18:07)
[2019-06-15] MEDS: CHOLECALCIFEROL 1,000 UNIT TABLET 1000 UNITS PO (08:53)
[2019-06-15] MEDS: FLUCONAZOLE 100 MG TABLET PO (08:53)
[2019-06-15] MEDS: hydroCHLOROthiazide 12.5 MG CAPSULE PO ×2 (08:54→18:07)
[2019-06-15] MEDS: lisinopriL 20 MG TABLET PO ×2 (08:54→18:08)
[2019-06-15] MEDS: TAMSULOSIN HCL 0.4 MG CAPSULE PO (08:55)
[2019-06-15] MEDS: ROSUVASTATIN 10 MG TABLET 20 MG PO (08:55)
[2019-06-15] MEDS: rifAMPin 300 MG CAPSULE 600 MG PO (08:55)
[2019-06-15 12:46] LABS: Glucose Point of Care 164 (65-105)
[2019-06-15 14:00] VITALS: BP 118/67; PULSE 93; RESP 18; TEMP 36.9; O2SAT 96
--- NOTE | 2019-06-15 16:12 | PCPTNOTE ---
Tatiana Strauss PTA completed an inpatient rehab wheelchair evaluation on William García on 06/15/2019. The patient is unable to safely and independently ambulate household distances due to their current impairments. Their diagnosis is T 9-10 Osteomyelitis with surgical repair and their impairments include decreased strength, decreased endurance, decreased range of motion, decreased balance, lower extremity weakness/ proprioceptive deficits. The patient demonstrates significant functional mobility limitations that impair their ability to participate in mobility-related activities of daily living (MRADLs), including toileting, feeding, dressing, grooming, and bathing in the customary locations in the home. These limitations cannot be sufficiently resolved by the use of an appropriately fitted cane or walker. It is recommended that the patient utilize a wheelchair for functional mobility within the home in order to facilitate optimal safety, independence and participation in all MRADL's and adequately access their home environment on a regular basis. The patient's home provides adequate access between rooms, maneuvering space, and surfaces to accommodate the recommended wheelchair. The use of a wheelchair for functional mobility is strongly recommended and the patient is receptive to using the wheelchair. The use of this wheelchair will significantly improve the patient's ability to participate in MRADLS and the patient will use it on a regular basis in the home. This will facilitate optimal safety, independence, and participation. The patient has demonstrated sufficient physical and mental capabilities needed to safely propel a manual wheelchair that is provided in the home during a typical day. Recommended Wheelchair Frame: Standard Recommended Wheelchair Size: 20 X 20 Recommended Wheelchair Cushion: Wheelchair Leg Recommendations: bilateral swing away detachable - Anti-tippers are recommended due to patient demonstrating increased risk for falls. They would benefit from anti-tippers with added safety and stabilization. Tatiana Strauss PTA 06/15/2019 Evaluating Therapist Date I agree with and certify that the above recommendation is medically necessary. Referring Physician Date I agree with and certify that the above recommendation is medically necessary. Referring Physician Date
[2019-06-15 17:29] LABS: Glucose Point of Care 109 (65-105)
[2019-06-15] MEDS: INSULIN GLARGINE (*BKC) 100 UNITS/ML 15 UNITS SUB-Q (20:57)
[2019-06-15 21:28] LABS: Glucose Point of Care 164 (65-105)
[2019-06-15 22:00] VITALS: BP 134/71; PULSE 77; RESP 18; TEMP 36.5; O2SAT 98
[2019-06-16] MEDS: ACETAMINOPHEN 500 MG TABLET 1000 MG PO ×5 (00:05→23:49)
[2019-06-16 06:00] VITALS: BP 156/78; PULSE 69; RESP 18; TEMP 37; O2SAT 100
[2019-06-16] MEDS: ceFAZolin 2 GM/D5W 50 ML 2 GM/50 ML BAG IVPB ×3 (06:20→23:12)
[2019-06-16 06:59] LABS: Basophils Absolute Auto 0.1 K/mm3 (0.0-0.1); Basophils Percent Auto 1.7 % (0.2-1.2); Eosinophils Absolute Auto 0.6 K/mm3 (0-0.3); Eosinophils Percent Auto 18.2 % (0-4.4); Hematocrit 28.9 % (42.0-52.0); Immature Granulocyte Absolute 0.01 K/mm3 (0.00-0.031); Immature Granulocyte Percent A 0.3 % (0-0.5); Lymphocytes Absolute Auto 0.86 K/mm3 (0.9-3.2); Lymphocytes Percent Auto 24.5 % (18.3-44.2); Mean Corpuscular HGB Conc 31.1 g/dl (32-36); Mean Corpuscular Hemoglobin 27.9 pg (26-34); Mean Corpuscular Volume 89.5 fl (80-100); Mean Platelet Volume 9.5 fl (7.4-10.4); Monocytes Absolute Auto 0.4 K/mm3 (0.1-0.6); Monocytes Percent Auto 11.1 % (2.6-8.5); Neutrophils Absolute Auto 1.6 K/mm3 (1.3-6.7); Neutrophils Percent Auto 44.2 % (45.5-73.1); Platelet Count Result 253 k/mm3 (150-375); Red Blood Count 3.23 M/mm3 (4.6-6.20); Red Cell Distribution Width 17.8 % (11.5-14.5); White Blood Count 3.5 K/mm3 (4.5-10.0)
[2019-06-16 07:07] LABS: Glucose Point of Care 108 (65-105)
[2019-06-16] MEDS: INSULIN ASPART (*BKC) 100 UNITS/ML 8 UNITS SUB-Q ×2 (10:32→18:50)
[2019-06-16] MEDS: CYCLOBENZAPRINE HCL 10 MG TABLET 20 MG PO ×2 (10:57→21:02)
[2019-06-16] MEDS: ASPIRIN 325 MG ENTERIC TABLET PO (10:58)
[2019-06-16] MEDS: GABAPENTIN 300 MG CAPSULE PO ×3 (10:59→18:50)
[2019-06-16] MEDS: hydroCHLOROthiazide 12.5 MG CAPSULE PO ×2 (11:00→18:49)
[2019-06-16] MEDS: CHOLECALCIFEROL 1,000 UNIT TABLET 1000 UNITS PO (11:00)
[2019-06-16] MEDS: lisinopriL 20 MG TABLET PO ×2 (11:01→18:51)
[2019-06-16] MEDS: rifAMPin 300 MG CAPSULE 600 MG PO (11:01)
[2019-06-16] MEDS: FLUCONAZOLE 100 MG TABLET PO (11:01)
[2019-06-16] MEDS: ROSUVASTATIN 10 MG TABLET 20 MG PO (11:01)
[2019-06-16] MEDS: TAMSULOSIN HCL 0.4 MG CAPSULE PO (11:02)
[2019-06-16 12:40] LABS: Glucose Point of Care 120 (65-105)
[2019-06-16 14:00] VITALS: BP 134/64; PULSE 87; RESP 17; TEMP 36.6; O2SAT 100
--- NOTE | 2019-06-16 14:15 | WPDNEURORHBP ---
Subjective Date/time seen: 06/16/19 14:15 Interval history: this pleasant 63-year-old diabetic gentleman is status post surgery 31 on his spine including the pathological fracture of the T 10 and T11 and he is on antibiotic IV for osteomyelitis as for the rehab is concerned he has achieved plenty a of the goals already walking 150 feet but still needing assistance he will need a wheelchair and walker when he goes home his eye IV antibiotics supposed to be for 6 weeks from the time of his surgery He denies any fever chills sore throat headache nausea and vomiting Review of Systems Review of Systems: All systems reviewed & are unremarkable except as noted in HPI and below Functional Status Ambulation Ability Ability to Ambulate 10 Feet: Standby Assistance Ability to Ambulate 50 Feet With 2 Turns: Contact Guard Ability to Ambulate 150 Feet: Contact Guard Ambulation Assistive Devices: Walker, Wheeled Transfers Ability Ability to Transfer In/Out of Chair: Standby Assistance Exam Const: General: comfortable and no acute distress HENMT: General nose exam: Normal nares present Mouth: Yes moist mucous membranes Eyes: General: appearance normal, both eyes and all related structures Neck: Neck: supple and no JVD Resp: Effort & Inspection: normal respiratory effort Auscultation: clear to auscultation bilaterally Cardio: Rate: regular rate Rhythm: regular rhythm GI: GI Palp: Yes Soft to palpation Auscultation: normal bowel sounds Back/Spine/Pelvis: Other: the incision of the surgery is clean and healthy no sign of clinical infection no tenderness no redness Skin: General skin exam: normal color and no rashes or lesions noted Neuro: Other: patient is awake and alert well oriented time place and person speech language functions are normal cranial examination is normal strength has significantly improved particularly in the lower extremities walking 150 feet with a walker proximal musculature of the hip girdle is still relatively weaker Extrem: General: normal to inspection Psych: Mental Status: mental status grossly normal Objective Data Vital Signs Vital Signs: Vital Signs - 24 hr 06/15/19 22:00 06/16/19 06:00 Temperature 36.5 C 37.0 C Pulse Rate 77 69 Respiratory Rate 18 18 Blood Pressure 134/71 156/78 H Pulse Oximetry 98 100 Intake/Output Intake/Output: Intake & Output 06/13/19 06/14/19 06/15/19 06/16/19 23:59 23:59 23:59 23:59 Intake Total 870 870 870 530 Balance 870 870 870 530 Meds/Results Medications: Active Medications Generic Name Dose Route Start Last Admin Trade Name Hali PRN Reason Stop Dose Admin Acetaminophen 1,000 mg 06/03/19 18:00 06/16/19 13:49 Tylenol Tablet PO 1,000 mg Q6HR KAVYA Administration Aspirin 325 mg 06/02/19 09:00 06/16/19 10:58 Aspirin Ec PO 325 mg DAILY KAVYA Administration Calcium Carbonate 500 mg 06/01/19 22:42 Tums PO DAILY PRN Heartburn Cyclobenzaprine HCl 20 mg 06/01/19 23:20 06/16/19 10:57 Flexeril PO 20 mg TID PRN Administration Spasms Dextrose 12.5 gm 06/01/19 21:57 Dextrose 50% Syringe IV PUSH PRN PRN Hypoglycemia Protocol Fluconazole 100 mg 06/08/19 09:00 06/16/19 11:01 Diflucan Tablet PO 100 mg QAM KAVYA Administration Gabapentin 300 mg 06/01/19 22:50 06/16/19 13:51 Neurontin PO 300 mg TID KAVYA Administration Glucagon 1 mg 06/01/19 21:57 Glucagon For Inj IM PRN PRN Hypoglycemia Protocol Glucose 15 gm 06/01/19 21:57 Glutose 15 PO PRN PRN Hypoglycemia Protocol Hydrochlorothiazide 12.5 mg 06/02/19 09:00 06/16/19 11:00 Hydrochlorothiazide PO 12.5 mg BID AKVYA Administration Dextrose 1,000 mls @ 100 mls/hr 06/01/19 21:57 Dextrose 5% 1,000 Ml IVPB PRN PRN Hypoglycemia Protocol Cefazolin Sodium 2 gm in 50 mls @ 100 mls/hr 06/01/19 22:55 06/16/19 13:56 Ancef 2 Gm/D5w 50 Ml IVPB 0
[2019-06-16 18:12] LABS: Glucose Point of Care 187 (65-105)
[2019-06-16] MEDS: INSULIN GLARGINE (*BKC) 100 UNITS/ML 15 UNITS SUB-Q (20:58)
[2019-06-16 21:28] LABS: Glucose Point of Care 225 (65-105)
[2019-06-16 22:00] VITALS: BP 134/76; PULSE 81; RESP 16; TEMP 36.8; O2SAT 99
[2019-06-17 06:00] VITALS: BP 135/85; PULSE 76; RESP 18; TEMP 36.9; O2SAT 100
[2019-06-17] MEDS: ACETAMINOPHEN 500 MG TABLET 1000 MG PO ×4 (06:20→22:43)
[2019-06-17] MEDS: ceFAZolin 2 GM/D5W 50 ML 2 GM/50 ML BAG IVPB ×3 (06:20→22:08)
[2019-06-17 06:59] LABS: Glucose Point of Care 151 (65-105)
[2019-06-17] MEDS: INSULIN ASPART (*BKC) 100 UNITS/ML 8 UNITS SUB-Q ×3 (07:25→17:01)
--- NOTE | 2019-06-17 07:46 | PCPTNOTE ---
William García was evaluated for a wheeled walker on 06/17/2019 by this physical therapist. The wheeled walker will resolve patient's mobility limitations and will be used for ADL's within the home. The patient can safely use the wheeled walker. ?The wheeled walker will resolve the patient?s mobility deficits, including impaired strength, impaired balance/coordination, and impaired functional activity tolerance. Briseyda Ma, PT, DPT
[2019-06-17] MEDS: rifAMPin 300 MG CAPSULE 600 MG PO (09:27)
[2019-06-17] MEDS: GABAPENTIN 300 MG CAPSULE PO ×3 (09:27→17:02)
[2019-06-17] MEDS: ASPIRIN 325 MG ENTERIC TABLET PO (09:27)
[2019-06-17] MEDS: ROSUVASTATIN 10 MG TABLET 20 MG PO (09:27)
[2019-06-17] MEDS: CHOLECALCIFEROL 1,000 UNIT TABLET 1000 UNITS PO (09:27)
[2019-06-17] MEDS: TAMSULOSIN HCL 0.4 MG CAPSULE PO (09:28)
[2019-06-17] MEDS: lisinopriL 20 MG TABLET PO ×2 (09:28→17:02)
[2019-06-17] MEDS: hydroCHLOROthiazide 12.5 MG CAPSULE PO ×2 (09:28→17:02)
[2019-06-17] MEDS: FLUCONAZOLE 100 MG TABLET PO (09:28)
[2019-06-17 11:49] LABS: Glucose Point of Care 165 (65-105)
--- NOTE | 2019-06-17 12:08 | PCDIET ---
Nutrition Follow-Up Complete: Nutrition Diagnosis: Altered nutrition related labs related to diabetes mellitus as evidenced by HgbA1C of 6.7%. Nutrition Goal: Patient will continue to consume 75% of meals or greater. Goal met. Patient consuming 100% of meals on diabetic diet which is appropriate. Last recorded weight is 82.1 kg. Recommend obtaining new weight. Bowel Motility: +BM on 06/16/19. Labs Reviewed: Glu (151) Meds Noted: Ancef, Diflucan, Hydrochlorothiazide, Novolog, Lantus, Lactulose, Senna, Vitamin D Additional Notes: Buttocks macerated. Back with surgical incision. Will continue to monitor with same goal. Nutrition Monitoring and Evaluation: Follow up every 7 days.
--- NOTE | 2019-06-17 13:47 | WPDNEURORHBP ---
Subjective Date/time seen: 06/17/19 13:47 Interval history: this 63-year-old gentleman is here after having had rather extensive spinal surgery for pathological fracture of the T10 and T11 with the combination of peripheral neuropathy and spinal cord dysfunction he has improved significantly and walking significant enough to be discharged tomorrow denies any headache nausea vomiting chest pain shortness of breath fever chills or sore throat Review of Systems Review of Systems: All systems reviewed & are unremarkable except as noted in HPI and below Functional Status Ambulation Ability Ability to Ambulate 10 Feet: Standby Assistance Ability to Ambulate 50 Feet With 2 Turns: Standby Assistance Ability to Ambulate 150 Feet: Contact Guard Ambulation Assistive Devices: Walker, Wheeled Transfers Ability Ability to Transfer In/Out of Chair: Standby Assistance Exam Const: General: comfortable and no acute distress HENMT: General nose exam: Normal nares present Mouth: Yes moist mucous membranes Eyes: General: appearance normal, both eyes and all related structures Neck: Neck: supple and no JVD Resp: Effort & Inspection: normal respiratory effort Auscultation: clear to auscultation bilaterally Cardio: Rate: regular rate Rhythm: regular rhythm GI: GI Palp: Yes Soft to palpation Auscultation: normal bowel sounds Skin: General skin exam: normal color and no rashes or lesions noted Neuro: Other: patient's mental status is normal cranial examination is normal upper extremity strength is 5/5 lower extremity stents is 4- over 5 does have evidence of peripheral neuropathy and in fact his spinal cord dysfunction has not Extrem: General: normal to inspection Psych: Mental Status: mental status grossly normal Objective Data Vital Signs Vital Signs: Vital Signs - 24 hr 06/16/19 14:00 06/16/19 22:00 06/17/19 06:00 Temperature 36.6 C 36.8 C 36.9 C Pulse Rate 87 81 76 Respiratory Rate 17 16 18 Blood Pressure 134/64 134/76 135/85 Pulse Oximetry 100 99 100 Intake/Output Intake/Output: Intake & Output 06/14/19 06/15/19 06/16/19 06/17/19 23:59 23:59 23:59 23:59 Intake Total 870 870 870 530 Balance 870 870 870 530 Meds/Results Medications: Active Medications Generic Name Dose Route Start Last Admin Trade Name Freq PRN Reason Stop Dose Admin Acetaminophen 1,000 mg 06/03/19 18:00 06/17/19 12:07 Tylenol Tablet PO 1,000 mg Q6HR KAVYA Administration Aspirin 325 mg 06/02/19 09:00 06/17/19 09:27 Aspirin Ec PO 325 mg DAILY KAVYA Administration Calcium Carbonate 500 mg 06/01/19 22:42 Tums PO DAILY PRN Heartburn Cyclobenzaprine HCl 20 mg 06/01/19 23:20 06/16/19 21:02 Flexeril PO 20 mg TID PRN Administration Spasms Dextrose 12.5 gm 06/01/19 21:57 Dextrose 50% Syringe IV PUSH PRN PRN Hypoglycemia Protocol Fluconazole 100 mg 06/08/19 09:00 06/17/19 09:28 Diflucan Tablet PO 06/21/19 09:01 100 mg QAM KAVYA Administration Gabapentin 300 mg 06/01/19 22:50 06/17/19 12:07 Neurontin PO 300 mg TID KAVYA Administration Glucagon 1 mg 06/01/19 21:57 Glucagon For Inj IM PRN PRN Hypoglycemia Protocol Glucose 15 gm 06/01/19 21:57 Glutose 15 PO PRN PRN Hypoglycemia Protocol Hydrochlorothiazide 12.5 mg 06/02/19 09:00 06/17/19 09:28 Hydrochlorothiazide PO 12.5 mg BID KAVYA Administration Dextrose 1,000 mls @ 100 mls/hr 06/01/19 21:57 Dextrose 5% 1,000 Ml IVPB PRN PRN Hypoglycemia Protocol Cefazolin Sodium 2 gm in 50 mls @ 100 mls/hr 06/01/19 22:55 06/17/19 07:00 Ancef 2 Gm/D5w 50 Ml IVPB 06/29/19 22:56 Infused Q8H KAVYA Infusion Insulin Aspart 8 units 06/02/19 08:00 06/17/19 12:07 Novolog SUB-Q 8 units TIDWM KAVYA Administration Insulin Aspart 3 - 6 units 06/02/19 08:00 06/17/19 12:20 Novolog SUB-Q Not Given TIDWM [facility] Protocol
[2019-06-17 14:00] VITALS: BP 121/69; PULSE 86; RESP 17; TEMP 36.5; O2SAT 100
[2019-06-17 15:35] LABS: Blood Urea Nitrogen 33 mg/dL (9-20); Calcium 9.7 mg/dL (8.4-10.2); Carbon Dioxide 26 mmol/L (22-30); Chloride 104 mmol/L (98-107); Estimated CRCL calculation 87 ml/min; Estimated Glomerular Filt Rate > 60; Glucose 137 mg/dL (75-110); Potassium 4.2 mmol/L (3.4-5.0); Sodium 138 mmol/L (137-145)
[2019-06-17 17:12] LABS: Glucose Point of Care 137 (65-105)
[2019-06-17] MEDS: INSULIN GLARGINE (*BKC) 100 UNITS/ML 15 UNITS SUB-Q (20:43)
[2019-06-17 21:08] LABS: Glucose Point of Care 230 (65-105)
[2019-06-17 22:00] VITALS: BP 143/68; PULSE 70; RESP 18; TEMP 36.6; O2SAT 100
[2019-06-17] MEDS: CYCLOBENZAPRINE HCL 10 MG TABLET 20 MG PO (22:43)
[2019-06-18 05:12] LABS: Albumin Level 3.5 g/dL (3.5-5.1); Alkaline Phosphatase 111 U/L (38-126); Aspartate Amino Transferase 17 U/L (17-59); Bilirubin,Total 0.1 mg/dL (0.2-1.3); Blood Urea Nitrogen 29 mg/dL (9-20); Calcium 10.1 mg/dL (8.4-10.2); Carbon Dioxide 28 mmol/L (22-30); Chloride 105 mmol/L (98-107); Estimated CRCL calculation 109 ml/min; Estimated Glomerular Filt Rate > 60; Glucose 138 mg/dL (75-110); Potassium 4.1 mmol/L (3.4-5.0); Sodium 136 mmol/L (137-145)
[2019-06-18 05:13] LABS: Alanine Aminotransferase < 6 U/L (4-50)
[2019-06-18 06:00] VITALS: BP 153/78; PULSE 71; RESP 18; TEMP 36.5; O2SAT 100
[2019-06-18] MEDS: ceFAZolin 2 GM/D5W 50 ML 2 GM/50 ML BAG IVPB (06:26)
[2019-06-18] MEDS: ACETAMINOPHEN 500 MG TABLET 1000 MG PO ×2 (06:26→12:33)
[2019-06-18 06:56] LABS: Glucose Point of Care 130 (65-105)
[2019-06-18] MEDS: INSULIN ASPART (*BKC) 100 UNITS/ML 8 UNITS SUB-Q ×2 (07:12→12:35)
[2019-06-18] MEDS: rifAMPin 300 MG CAPSULE 600 MG PO (09:21)
[2019-06-18] MEDS: lisinopriL 20 MG TABLET PO (09:21)
[2019-06-18] MEDS: ASPIRIN 325 MG ENTERIC TABLET PO (09:21)
[2019-06-18] MEDS: FLUCONAZOLE 100 MG TABLET PO (09:21)
[2019-06-18] MEDS: TAMSULOSIN HCL 0.4 MG CAPSULE PO (09:21)
[2019-06-18] MEDS: hydroCHLOROthiazide 12.5 MG CAPSULE PO (09:21)
[2019-06-18] MEDS: ROSUVASTATIN 10 MG TABLET 20 MG PO (09:21)
[2019-06-18] MEDS: CHOLECALCIFEROL 1,000 UNIT TABLET 1000 UNITS PO (09:21)
[2019-06-18] MEDS: GABAPENTIN 300 MG CAPSULE PO ×2 (09:21→12:34)
[2019-06-18] MEDS: CYCLOBENZAPRINE HCL 10 MG TABLET 20 MG PO (11:03)
[2019-06-18 11:21] LABS: Glucose Point of Care 161 (65-105)
--- NOTE | 2019-06-20 12:12 | DS_ITS ---
DATE OF DISCHARGE: 06/18/2019 DISCHARGE ACUTE REHABILITATION DIAGNOSIS: Primary rehab impairment category of orthopedic/other. Etiological diagnosis is T10-T11, pathological fracture for which the patient has undergone surgery. DISCHARGE ACTIVE COMORBID CONDITIONS: 1. Diabetes mellitus with peripheral neuropathy. 2. Left complex retinal detachment repair. 3. Left total knee replacement. REASON FOR ADMISSION: A 63-year-old right-handed male with previous medical history of diabetes mellitus with peripheral neuropathy, left foot osteomyelitis and hypertension, presented to [facility] on 05/13 for the possible thoracic osteomyelitis and diskitis, and because of the progressive complaint of the pain over the past several weeks in addition to generalized weakness and spasm in both lower extremities. Recently, the patient has had a left foot osteomyelitis with bacteremia for which I and D of his left foot was done on 03/27/2019. He completed 6 weeks of IV Ancef on May 09 and was placed on 2 weeks of oral cefdinir to complete the treatment. Sedimentation rate and CRP were high. MRI of the lumbar spine revealed him to have degenerative disk disease. CT of the abdomen and pelvis documented cecum and ascending colon full of the stool as well as T9 and T10 osseous erosion. It was followed by the MRI of the spine, which was suggestive of underlying osteomyelitis and diskitis. He was transferred to [facility] on 05/15/2019 for neurosurgical intervention. On evaluation there at the time of admission, he was extremely hypertensive with blood pressure of 214/112, for which antihypertensive medication was started. His hemoglobin A1c was 7.4. It was suggested that he had compression fracture of T11 and T10 with vertebral osteomyelitis. He underwent T7-L2 posterior instrumentation, arthrodesis, local autograft, left T11 laminectomy and facetectomy on 05/18/2019. He went back to Surgery on 05/25/2019 for T10 and T11 corpectomy with reconstruction. Subsequent sutures were removed. He will be followed by the physician in 4 weeks. Postoperatively, he did have hypertension, hypoglycemia, pneumonia, constipation, generalized weakness, gait instability, but he was managed on the IV antibiotics for 6 weeks. He has not traveled outside the [place] or had any contact with someone who had the COVID-19 and also he had no contact within the country as well. LEVEL OF FUNCTION AT THE TIME OF ADMISSION: He was independent for eating, required setup for the oral hygiene. He refused toileting. On evaluation, he will require substantial assistance for bathing, setup for upper body dressing, substantial for the lower body dressing. He was dependent for footwear, required partial assistance for rolling in bed, sit to lying, lying to sit. He was dependent for sit to stand, chair transfer, toilet transfer. He was unable to car transfer, walk 10 feet, 50 feet with 2 turns, 150 feet, 10 feet on uneven surfaces, curb or step, 4 steps, 12 steps, picking up object. He was unable to take wheelchair 150 feet, was independent for the 50 feet. ANTICIPATED REHAB GOALS: Anticipated rehab goals were to make him independent in eating, oral hygiene, toileting, required only supervision for bathing, independent upper body dressing, lower body dressing, footwear, rolling in bed, sit to lying, lying to sit, sit to stand, chair transfer, toilet transfer, walking 10 feet, supervision for car transfer, and walking 50 feet with 2 turns, partial assistance for 150 feet, independent for walking 10 feet on uneven surfaces, and partial assistance for curb or step, 4 steps, 12 steps, picking up object, but become independent in wheelchair for 50 and 150 feet. LEVEL OF FUNCTION AT THE TIME OF DISCHARGE: He became independent eating and oral h
== END 2019-06-18 12:51 | disposition home health service (06) | DRG 560 ==
PROVIDERS: Admitting Provider Psychiatry & Neurology Neurology; PCP Emergency Medicine; Visit Provider Psychiatry & Neurology Neurology
DX: Z47.89 Encounter for other orthopedic aftercare (principal); M46.24 Osteomyelitis of vertebra, thoracic region; G95.89 Other specified diseases of spinal cord; J90 Pleural effusion, not elsewhere classified; M84.48XD Pathological fracture, other site, subsequent encounter for fracture with routine healing; D64.9 Anemia, unspecified; D72.829 Elevated white blood cell count, unspecified; E11.42 Type 2 diabetes mellitus with diabetic polyneuropathy; E11.649 Type 2 diabetes mellitus with hypoglycemia without coma; I10 Essential (primary) hypertension; M21.6X2 Other acquired deformities of left foot; M48.061 Spinal stenosis, lumbar region without neurogenic claudication; M62.549 Muscle wasting and atrophy, not elsewhere classified, unspecified hand; M62.81 Muscle weakness (generalized); R26.9 Unspecified abnormalities of gait and mobility; Z96.652 Presence of left artificial knee joint; Z86.14 Personal history of Methicillin resistant Staphylococcus aureus infection; Z86.31 Personal history of diabetic foot ulcer
CPT/HCPCS: 36415; 71045; 80048; 80053; 82947; 83036; 85025; 87040; 97110; 97116; 97162; 97167; 97530; 97535; 97542; A9270; J0690; J1815

== ENCOUNTER 2021-10-06 16:39 | Outpatient (CLI) | payer MEDICARE, SELFPAY ==
--- NOTE | ~2021-10-06 | CT_ITS ---
EXAMINATION: CT orbit BI wo con DATE: 10/06/2021 17:18 INDICATION: Foreign body in the left eye TECHNIQUE: Computed tomography (CT) of the orbits was performed without intravenous contrast. Sagitta l and coronal reconstructions were performed. Automated exposure control and iterative reconstruction technique were employed. The dose-length product was 171.43 mGy-cm. COMPARISON: None FINDINGS: Changes of left sided intraocular lens replacement. Mild edema of the eyelids at the left orbit. Orbi ts are otherwise unremarkable with no post septal inflammatory stranding or evident foreign bodies. M ild mucosal thickening and small mucous retention cysts at the left and right maxillary sinuses. Christina echo of the paranasal sinuses are clear with patent bilateral ostiomeatal units. Incidentally noted right-sided Avis cell. No fractures. Slight rightward bowing of the nasal septum which parallels th e contours of the turbinates. Visual is portions of the brain is unremarkable. IMPRESSION: 1. Mild edema and swelling of the eyelids at the left orbit with no post septal inflammatory strandin g or evident foreign bodies. Of note, organic matter such as wood splinters are of similar density to the soft tissues and when small may be occult even with CT. Reviewed, dictated and finalized at location A. IMPRESSION: 1. Mild edema and swelling of the eyelids at the left orbit with no post septal inflammatory stranding or evident foreign bodies. Of note, organic matter such as wood splinters are of similar density to the soft tissues and when small ma y be occult even with CT.
== END 2021-10-06 16:40 | disposition home or self-care (01) ==
PROVIDERS: PCP Nurse Practitioner Family; Visit Provider Ophthalmology
DX: T15.92XA Foreign body on external eye, part unspecified, left eye, initial encounter (principal)
CPT/HCPCS: 70480

== ENCOUNTER 2021-10-18 11:07 | Outpatient (CLI) | payer MEDICARE, SELFPAY ==
[2021-10-18 11:45] LABS: Basophils Percent Auto 0.3 % (0.2-1.2); Eosinophils Absolute Auto 0.3 K/mm3 (0-0.3); Hemoglobin 11.2 g/dL (14.0-18.0); Immature Granulocyte Absolute 0.03 K/mm3 (0.00-0.031); Immature Granulocyte Percent A 0.5 % (0-0.5); Lymphocytes Absolute Auto 1.06 K/mm3 (0.9-3.2); Lymphocytes Percent Auto 16.1 % (18.3-44.2); Mean Corpuscular HGB Conc 32.9 g/dl (32-36); Mean Corpuscular Hemoglobin 29.9 pg (26-34); Mean Corpuscular Volume 90.9 fl (80-100); Mean Platelet Volume 9.1 fl (7.4-10.4); Monocytes Absolute Auto 0.4 K/mm3 (0.1-0.6); Monocytes Percent Auto 6.1 % (2.6-8.5); Neutrophils Absolute Auto 4.8 K/mm3 (1.3-6.7); Platelet Count Result 319 k/mm3 (150-375); Red Blood Count 3.74 M/mm3 (4.6-6.20); Red Cell Distribution Width 12.7 % (11.5-14.5); White Blood Count 6.6 K/mm3 (4.5-10.0)
[2021-10-18 11:56] LABS: Alanine Aminotransferase 19 U/L (6-50); Albumin Level 4.3 g/dL (3.5-5.1); Alkaline Phosphatase 106 U/L (38-126); Anion Gap 10 mmol/L (8-16); Aspartate Amino Transferase 27 U/L (17-59); Bilirubin,Total 0.3 mg/dL (0.2-1.3); Blood Urea Nitrogen 22 mg/dL (9-20); Carbon Dioxide 25 mmol/L (22-30); Chloride 103 mmol/L (98-107); Estimated Glomerular Filt Rate > 60; Glucose 181 mg/dL (65-110); Phosphorus 3.5 mg/dL (2.5-4.5); Potassium 4.5 mmol/L (3.4-5.0); Sodium 138 mmol/L (137-145)
== END 2021-10-18 11:08 | disposition home or self-care (01) ==
PROVIDERS: PCP Nurse Practitioner Family; Visit Provider Ophthalmology
DX: H44.19 Other endophthalmitis (principal)
CPT/HCPCS: 36415; 80069; 80076; 85025

== ENCOUNTER 2023-07-15 10:56 | Outpatient (CLI) | payer MEDICARE, SELFPAY ==
--- NOTE | 2023-07-15 11:46 | ECG_ITS ---
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 Measurements Intervals [place] Rate: 66 P: 41 WV: 244 QRS: 8 QRSD: 98 T: 28 QT: 386 QTc: 405 Interpretive Statements BASELINE ARTIFACT, SUBOPTIMAL ECG QUALITY SINUS RHYTHM WITH FIRST DEGREE AV BLOCK ABNORMAL ECG No previous ECG available for comparison Electronically Signed On 07-15-2023 14:56:04 CDT by Tarik Chu M.D.
[2023-07-15 12:16] LABS: Basophils Percent Auto 0.5 % (0.2-1.2); Eosinophils Absolute Auto 0.1 K/mm3 (0-0.3); Eosinophils Percent Auto 1.8 % (0-4.4); Hematocrit 35.5 % (42.0-52.0); Hemoglobin 11.6 g/dL (14.0-18.0); Immature Granulocyte Absolute 0.01 K/mm3 (0.00-0.031); Immature Granulocyte Percent A 0.3 % (0-0.5); Lymphocytes Percent Auto 25.3 % (18.3-44.2); Mean Corpuscular HGB Conc 32.7 g/dl (32-36); Mean Corpuscular Hemoglobin 30.5 pg (26-34); Mean Corpuscular Volume 93.4 fl (80-100); Mean Platelet Volume 9.7 fl (7.4-10.4); Monocytes Absolute Auto 0.5 K/mm3 (0.1-0.6); Monocytes Percent Auto 13.6 % (2.6-8.5); Neutrophils Absolute Auto 2.3 K/mm3 (1.3-6.7); Neutrophils Percent Auto 58.5 % (45.5-73.1); Platelet Count Result 240 k/mm3 (150-375); Red Cell Distribution Width 13.1 % (11.5-14.5)
[2023-07-15 12:21] LABS: Urine Cotinine NEGATIVE
[2023-07-15 12:26] LABS: Albumin Level 4.3 g/dL (3.5-5.1); Anion Gap 8 mmol/L (4-12); Blood Urea Nitrogen 31 mg/dL (9-20); Calcium 9.8 mg/dL (8.4-10.2); Carbon Dioxide 24 mmol/L (22-30); Chloride 107 mmol/L (98-107); Estimated Glomerular Filt Rate > 60; Glucose 90 mg/dL (65-110); Potassium 4.7 mmol/L (3.4-5.0); Sodium 139 mmol/L (137-145)
[2023-07-15 12:32] LABS: Hemoglobin A1C 7.1 % (<5.7)
== END 2023-07-15 10:57 | disposition home or self-care (01) ==
LOC: ANHSURGERY 11:02
PROVIDERS: PCP Registered Nurse; Visit Provider Orthopaedic Surgery
DX: Z01.818 Encounter for other preprocedural examination (principal); M17.11 Unilateral primary osteoarthritis, right knee
CPT/HCPCS: 80048; 80307; 82040; 83036; 85025; 87081; 93005

== ENCOUNTER 2023-08-01 00:31 | Day surgery (SDC) | payer MEDICARE, SELFPAY ==
--- NOTE | 2023-07-15 11:25 | PC.NURSE ---
Report to the Outpatient Waiting Room, entrance under the green pavilion located off [facility], at time _9:30AM on date __08/01/23 . Planned Procedure Time: _11:30 AM . Time changes happen often and if your time is changed the preop area will call you the afternoon before. - You and your visitor will be asked to self-screen and do not enter if you have any COVID symptoms. - A mask is optional within the hospital at this time. Patients may have clear liquids (water, carbonated beverages, clear teas, apple juice) until 3 hours prior to surgery(8:30 AM) with a maximum of 20 ounces. - No food from midnight until time of surgery - Infants may have breast milk until 4 hours before surgery, infant formula 6 hours prior to surgery. - Children will be allowed to drink immediately following surgery. If applicable, please bring a bottle or sippy cup to assist with drinking. Juice, water, soda, and popsicles are readily available. For infants on formula, please bring formula the day of surgery. Pacifiers are allowed. Take the following medications with a SIP of water the morning of surgery: _AMLODIPINE DO NOT STOP ANY OF YOUR OTHER PRESCRIPTION MEDICATIONS PRIOR TO SURGERY ?EXCEPT THE FOLLOWING Medications to discontinue per physician __HOLD MELOXICAM 7 DAYS PRE OP PER DR ARROYO.LAST DOSE 07/24/23. HOLD ALL VITAMINS AND SUPPLEMENTS 3 DAYS PRE OP LAST DOSE 07/28/23____MAY TAKE TYLENOL IF NEEDED FOR PAIN TOTAL JOINT CLASS 07/17/23 AT 10 AM Please no make-up, nail canadian, hairspray, perfume, deodorant, or body powder the day of surgery. No jewelry (including any body piercings) or valuables the day of surgery, leave them at home. Please take a shower or bath the night before, or the morning of, surgery with an antibacterial soap. Wear comfortable, loose fitting clothing. Children are encouraged to wear pajamas. - Jewelry must be removed prior to entering the operating room. Rings and piercings that are not removed may be cut off. - The hospital will not accept responsibility for valuables. - Please leave all valuables, including medications, at home the day of surgery. If you are going home after surgery, a licensed electric truck driver must drive you home. - NO public transportation without another adult if you receive anesthesia. - We recommend that an adult stay with you for 24 hours following discharge. - We also recommend that you do not drive, make important decision, drink alcoholic beverages, or take any drugs that were not prescribed by your health care provider for at least 24 hours after your discharge time. Follow any additional instructions given to you from your surgeon. If you or anyone in your household have experienced Covid symptoms in the past week, please notify your surgeon or the nurse liaison at the phone number below for possible testing. VERBAL AND WRITTEN instructions given to _PATIENT AND DONNA and asked if any additional questions and then verbalized understanding. Patient advised to call surgeon office or pre surgery nurse liaison [phone] if any additional questions.
[2023-07-15 11:41] VITALS: BMI 23.4
[2023-07-15 11:52] VITALS: BP 116/72; PULSE 66; RESP 18; TEMP 36.9; O2SAT 100
--- NOTE | 2023-07-29 11:47 | PM.IMHP ---
H&P: HPI History of Present Illness Date/Time: 07/29/23 11:47 Chief Complaint: Right knee DJD Narrative: 67-year-old male who presents today for a right total knee arthroplasty. He has been having symptoms for years in the right knee. He has advanced medial compartment osteoarthritis. He has tried several different anti-inflammatories including meloxicam, ibuprofen he has also tried Tylenol without any improvement of his symptoms. His pain on a daily basis. 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 The pain in the knee is affecting his daily life and he feels this point is ready to proceed with right total knee arthroplasty. Did have his left knee replaced in 2015 which is doing very well. Review of Systems Review of Systems: All systems reviewed & are unremarkable except as noted in HPI and below PMFSH Past Medical History Medical History (Updated 06/23/23 @ 12:59 by Leroy Abdullahi MD) Diabetes Hypertension Surgical History Surgical History (Updated 07/29/23 @ 08:09 by Tami Agudelo CMA) History of back surgery History of hernia repair History of left knee replacement History of shoulder replacement Family History Family History Mother Diabetes mellitus Father Degenerative disk disease Myocardial infarction Social History Social History (Updated 06/12/23 @ 08:14 by Olivia Vann CMA) Smoking status: Never smoker Additional smoking assessment comments: DENIES ANY FORM OF TOBACCO USE Alcohol intake: never Substance use: never Substance use type: does not use Do You Feel Safe in your Home?: Yes Lack of Transportation: No Lack of Food: Never True Current Housing: I Have Housing Concerned About Future Housing: No Difficulty Paying Gas/Electric Bills: No Difficulty Paying for Meds: No Currently Unemployed: No Education: High School Diploma/GED Difficulty w/ Childcare or Family Care: No Living arrangements: with family Occupation/Education: occupation 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 Gender identity (if verbalized by the patient): Male Spiritual care concerns: No Agree to blood products: Yes Meds Home Medications and Allergies Home Medications Medication Instructions Recorded Confirmed Type amlodipine 10 mg tablet 10 mg PO DAILY 06/12/23 07/15/23 History dapagliflozin propanediol 10 mg 10 mg PO DAILY 06/12/23 07/15/23 History tablet (Farxiga) finasteride 5 mg tablet 5 mg PO DAILY 06/12/23 07/15/23 History insulin degludec 100 unit/mL (3 8 unit subcut QPM 06/12/23 07/15/23 History mL) subcutaneous pen (Tresiba FlexTouch U-100 insulin) krill oil 500 mg capsule 500 mg PO DAILY 06/12/23 07/15/23 History lisinopril 40 mg tablet 40 mg PO DAILY 06/12/23 07/15/23 History meloxicam 15 mg tablet 15 mg PO DAILY 06/12/23 07/15/23 History metformin 1,000 mg tablet,extended 1,000 mg PO BID 06/12/23 07/15/23 History release 24hr (osmotic) rosuvastatin 20 mg tablet (Crestor) 20 mg PO DAILY 06/12/23 07/15/23 History semaglutide 2 mg/dose (8 mg/3 mL) 2 mg subcut WEEKLY 06/12/23 07/15/23 History subcutaneous pen injector (Ozempic) acetaminophen 500 mg capsule 1,000 mg PO PRN PRN Pain 07/15/23 07/15/23 History coQ10 (ubiquinol) 100 mg capsule 100 mg PO DAILY 07/15/23 07/15/23 History Allergies Allergy/AdvReac Type Severity Reaction Status Date / Time ketorolac Allergy Rash Verified 07/15/23 11:08 Penicillins Allergy Swelling Verified 07/15/23 11:08 tramadol Allergy Swelling Verified 07/15/23 11:08 Exam Narrative: 67-year-old male alert pleasant. He is 6 ft 1 175 lb BMI is 23.1. Range of motion right knee is from 5-125 degrees. Mild effusion. No significant medial or lateral joint line tenderness. Normal stability in the knee. He has a fixed varus deformity that does not correct. Hip range of motion is full without discomfort, negative Stinc
[2023-08-01] VITALS (9 sets, daily range): BP systolic 119–138; BP diastolic 60–94; PULSE 60–74; RESP 11–18; TEMP 36.3–37.3; O2SAT 99–100; BMI 22.6
--- NOTE | ~2023-08-01 | XR_ITS ---
EXAMINATION: [id number] DATE: 08/01/2023 15:38 INDICATION: Postoperative evaluation following right total knee arthroplasty. TECHNIQUE: Anteroposterior and lateral views of the right knee were obtained. COMPARISON: 06/12/2023 FINDINGS: Right total knee arthroplasty with patellar resurfacing appears well seated and in near anatomic alig nment. No fractures identified. Moderate size enthesophyte at the anterior tibial tuberosity. Expect ed postoperative subcutaneous and intra-articular gas. IMPRESSION: 1. Right total knee arthroplasty, negative for postoperative purposes. Reviewed, dictated and finalized at location A.
[2023-08-01] MEDS: ACETAMINOPHEN 500 MG TABLET 1000 MG PO (09:40)
[2023-08-01] MEDS: LACTATED RINGERS 1,000 ML 30 ML IV CONT ×3 (09:55→15:39)
[2023-08-01] MEDS: VANCOMYCIN 1,250 MG/NS 250 ML 1,250 MG/250 ML BAG 166.67 MG IVPB (10:00)
[2023-08-01 10:04] LABS: Glucose Point of Care 118 mg/dl (65-105)
--- NOTE | 2023-08-01 10:18 | WPDANESEPPF ---
Anes - Initial Pre Proc Eval Procedure: Operation Date: 08/01/23 11:30 Proposed Procedures p Right Total Knee Arthroplasty - Leroy Abdullahi MD Date/Time: 08/01/23 10:18 Surgeon: Leroy Abdullahi MD Pre Op Diagnosis: oa right knee Patient Data Age: 67 Gender: M Height: 1.83 m Weight: 78.5 kg Last Vital Signs Temp 98.5 F 07/15/23 11:52 Pulse 66 07/15/23 11:52 Resp 18 07/15/23 11:52 BP 116/72 07/15/23 11:52 Pulse Ox 100 07/15/23 11:52 O2 Del Method Room Air 07/15/23 11:52 Allergies Allergy/AdvReac Type Severity Reaction Status Date / Time ketorolac Allergy Rash Verified 07/15/23 11:08 Penicillins Allergy Swelling Verified 07/15/23 11:08 tramadol Allergy Swelling Verified 07/15/23 11:08 Home Medications Medication Instructions Recorded Confirmed Type amlodipine 10 mg tablet 10 mg PO DAILY 06/12/23 07/15/23 History dapagliflozin propanediol 10 mg 10 mg PO DAILY 06/12/23 07/15/23 History tablet (Farxiga) finasteride 5 mg tablet 5 mg PO DAILY 06/12/23 07/15/23 History insulin degludec 100 unit/mL (3 8 unit subcut QPM 06/12/23 07/15/23 History mL) subcutaneous pen (Tresiba FlexTouch U-100 insulin) krill oil 500 mg capsule 500 mg PO DAILY 06/12/23 07/15/23 History lisinopril 40 mg tablet 40 mg PO DAILY 06/12/23 07/15/23 History meloxicam 15 mg tablet 15 mg PO DAILY 06/12/23 07/15/23 History metformin 1,000 mg tablet,extended 1,000 mg PO BID 06/12/23 07/15/23 History release 24hr (osmotic) rosuvastatin 20 mg tablet (Crestor) 20 mg PO DAILY 06/12/23 07/15/23 History semaglutide 2 mg/dose (8 mg/3 mL) 2 mg subcut WEEKLY 06/12/23 07/15/23 History subcutaneous pen injector (Ozempic) acetaminophen 500 mg capsule 1,000 mg PO PRN PRN Pain 07/15/23 07/15/23 History coQ10 (ubiquinol) 100 mg capsule 100 mg PO DAILY 07/15/23 07/15/23 History Laboratory Tests 08/01/23 10:01 POC Capillary Glucose 118 H mg/dl (65-105) Patient hx anesthesia problems: none Family hx anesthesia problems: none Results Review: All pre-operative results and documents have been reviewed as part of the pre-operative evaluation. PMFSH Past Medical History Medical History Diabetes Hypertension Surgical History Surgical History History of back surgery History of hernia repair History of left knee replacement History of shoulder replacement Family History Family History Mother Diabetes mellitus Father Degenerative disk disease Myocardial infarction Social History Social History Smoking status: Never smoker Additional smoking assessment comments: DENIES ANY FORM OF TOBACCO USE Alcohol intake: never Substance use: never Substance use type: does not use Do You Feel Safe in your Home?: Yes Lack of Transportation: No Lack of Food: Never True Current Housing: I Have Housing Concerned About Future Housing: No Difficulty Paying Gas/Electric Bills: No Difficulty Paying for Meds: No Currently Unemployed: No Education: High School Diploma/GED Difficulty w/ Childcare or Family Care: No Living arrangements: with family Occupation/Education: occupation 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
[2023-08-01] MEDS: TRANEXAMIC ACID 1,000MG/ISO100 1,000 MG/100 ML BAG 200 MG IVPB (11:00)
--- NOTE | 2023-08-01 11:11 | WPDHPUPDATE1 ---
History and Physical Update Update Date/Time: 08/01/23 11:11 History and Physical has been reviewed, including an updated exam of the patient. There are NO changes in the patient's condition. Risks, benefits, and alternatives have been discussed and questions answered. Patient agrees to proceed with procedure.
[2023-08-01] MEDS: ceFAZolin 2 GM/D5W 50 ML 2 GM/50 ML BAG IVPB ×2 (11:25→18:04)
[2023-08-01] MEDS: SODIUM CHLORIDE 0.9% IV 38.7 ML, MORPHINE SULFATE INJ (*CRX) 2 MG, ROPivacaine HCL 1% 2... INFILTRATE (12:52)
[2023-08-01] MEDS: ceFAZolin SODIUM 1 GM VIAL 3 GM (12:54)
[2023-08-01] MEDS: IBUPROFEN IV 800 MG/200 ML 800 MG/200 ML BAG 400 MG IVPB (13:30)
[2023-08-01] MEDS: TRANEXAMIC ACID 1,000 MG/10 ML AMPUL 1000 MG IV PUSH (14:30)
[2023-08-01] MEDS: ceFAZolin SODIUM 1 GM VIAL 2 GM IV PUSH (14:35)
--- NOTE | 2023-08-01 15:36 | W.PM.PROC2 ---
Procedure Note - Detailed Date of Procedure 08/01/23 Pre-op Diagnosis oa right knee Post-op Diagnosis Same Procedure Performed right total knee arthroplasty Surgeon Leroy Abdullahi MD [employer] Literature Professor Estrella LAW Anesthesia General Description of Procedure Patient was brought to the operating room and general anesthesia was administered. He received 2 g Ancef weight based vancomycin 1 g of tranexamic acid preoperatively. The right knee was prepped draped usual fashion. He had full extension under anesthesia. There was a fair amount of pseudolaxity medially as well as laxity laterally in extension. Limb was exsanguinated and tourniquet elevated to 250 mmHg. A 7 in longitudinal midline incision was used and a standard parapatellar arthrotomy utilized. The patella was very arthritic with complete eburnation centrally. It measured 25 mm in thickness. Partial infrapatellar fat pad excision performed and quadriceps synovectomy carried out. The patella was cut to 17 mm and a protector cap applied. Bone quality was good. A guide warren was inserted down the femoral canal after aspiration of canal contents using the 5 degree cutting bushing 9 mm of bone removed the distal femur. Because of the wear medially this removed 9 mm off the lateral side. Next the tibia was cut. We started with a conservative cut and then see that we were too tight in flexion and we were well short of the floor of the central medial tibial plateau defect where he had severe wear. An additional 3 mm were removed. This left a band of where about 15 mm anterior to posterior about 8 mm wide where the defect remained at the far medial central tibial plateau and this included some osteophyte as well. The cut was made approximately 1 degree of varus. Bone quality was excellent. Meniscal remnants were excised and the PCL recessed. Flexion gap measured 8 mm medially and 14 mm laterally at 90?. Sizing guide was applied the distal femur set at 5? of external rotation. It looked like the size 72.5 might notch anteriorly and we therefore cut with the 75 for [employer] system.. This fit line to line distally and was only a mm above the cortex of the proximal flange. The tibia was sized to a size 79 placed at proper rotation and punched. We trialed with the size 10 which was excessively loose laterally in extension. In flexion it was mildly loose lateral compared to medial. We were tight medially in both flexion and extension. The medial and posteromedial tibial osteophyte was removed at this time without recent releasing posteromedial capsule as he did not have a severe varus deformity preoperatively. Provisional posterior condylar osteophyte removal was carried out this time and and we trialed again with a size 11. The 11 came out to full extension a negative bounce with 0.5 mm medial play in extension about 4 or 5 laterally. In flexion we had about 2 mm medial and 2 mm lateral opening. We trialed with 12 and the knee came out just to full extension with negative bounce but with the extensor mechanism towel click there was a couple of degrees of flexion with a positive bounce and we had no play at 90? of felt too tight. Therefore, I chose to place a 1 mm Henry of cancellous bone from the chamfer cut after irrigating this with antibiotic solution and drying, we placed this on the distal aspect of the lateral femoral condyle laterally and with repeat trialing, this had better balance with about 3 mm of lateral opening in extension with 11 insert which the seemed more appropriate. As the flexion gap was balanced nicely at 90?, we applied the size 72.5 cutting block pinned in place and revised the anterior cut and the anterior chamfer cut and the 72.5 fit very nicely. Trialing gave us the same findings as above. The patella was sized to the 37 thin and the lug holes drilled. At this time the limb was re-exsanguinated tourniquet elevated at 250 mmHg. It had been released earlier at 90 minutes. The
[2023-08-01 16:08] LABS: Glucose Point of Care 127 mg/dl (65-105)
[2023-08-01] MEDS: SODIUM CHLORIDE 0.9% IV 1,000 ML 125 ML IV CONT (18:04)
[2023-08-01] MEDS: SENNA/DOCUSATE SODIUM TABLET 2 TAB PO (18:08)
[2023-08-01] MEDS: ACETAMINOPHEN 325 MG TABLET 650 MG PO ×2 (18:08→21:15)
[2023-08-01] MEDS: oxyCODONE HCL (*CRX) 5 MG TAB IR PO ×2 (18:09→21:15)
[2023-08-01] MEDS: metFORMIN HCL XR 500 MG TAB.SR.24H 1000 MG PO (18:12)
[2023-08-01 18:17] LABS: Glucose Point of Care 173 mg/dl (65-105)
--- NOTE | 2023-08-01 18:57 | PM.IMCN ---
Assessment and Plan Assessment and plan (1) Primary osteoarthritis of right knee: Code(s): M17.11 - Unilateral primary osteoarthritis, right knee Status: Acute Assessment and Plan: Underwent a right knee total arthroplasty on 07/31 with Kaylen HOROWITZ. - ambulate with assistance and up to chair - use IS - neurovasc checks - see order for intervals - SCDs - resume diet - pain management - zofran PRN for nausea - monitor labs in AM - CBC and BMP - bowel regimen: docusate/senna, polyethylene glycol - maintenance fluids: NS 125 mL/hr x8 hrs - prophylactic abx - Ancef - PT/OT (2) Diabetes: Code(s): E11.9 - Type 2 diabetes mellitus without complications Status: Acute Assessment and Plan: - hypoglycemia protocol - POC blood glucose ACHS - home medication: holding Tresiba (NF), Ozempic (NF). Continuing Farixga and Metformin. - correct regimen ordered - low dose TIDWM - A1C 7.1% on 08/11/2023 (3) Hypertension: Code(s): I10 - Essential (primary) hypertension Status: Acute Assessment and Plan: - chronic, currently 138/73 - continue home medications: amlodipine 10 mg, if becomes hypertensive may resume lisinopril - monitor Plan Patient here for surgical management of his severe arthritis of the right knee, underwent a total right knee arthroplasty on 08/01/2023. Awaiting PT / OT. Monitor glucose and BP postoperatively. Medications reviewed and resumed as appropriate. Diet: diabetic GI Prophylaxis: not currently indicated DVT Prophylaxis: SCDs Lines: peripheral Code Status: full code HPI Date of Consult Consult date: 08/02/23 Requesting Physician: Leroy Abdullahi MD Primary Care Provider: Kasey Schaefer, [employer] Consult Narrative Reason for consult: Medical Management Narrative: 67 y/o M presents here for surgical management of his advanced osteoarthritis of the R knee with PMH of DM and HTN. The patient presents here for surgical management of his advanced medial compartment osteoarthritis of the right knee. He has previously tried conservative management: Anti-inflammatory, Tylenol daily. 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 The pain is beginning to affect his ADLs and ability to work. He has previously underwent a left knee arthroplasty in 2014, reports satisfaction with the results. Ultimately elected to proceed with surgical management and had a total right knee arthroplasty done today (07/31). Currently reporting a moderate amount of pain post-operatively. Denying nausea or vomiting. Denies new medications or recent changes in his medications. Preop workup:XR right knee showed tricompartmental degenerative changes most severe in the medial compartment, severe bone wear of the tibial plateau, moderate narrowing of the lateral compartment joint space. WBC 4.0, hemoglobin 11.6, creatinine 1.2 and GFR >60, and A1C 7.1%. Preop VS: 98.5? F, HR 66, RR 18, 116/72, and 100% on RA. Review of Systems Review of Systems: All systems reviewed & are unremarkable except as noted in HPI and below PMFSH Past Medical History Medical History Diabetes Hypertension Surgical History Surgical History History of back surgery History of hernia repair History of left knee replacement History of shoulder replacement Family History Family History Mother Diabetes mellitus Father Degenerative disk disease Myocardial infarction Social History Social History Smoking status: Never smoker Additional smoking assessment comments: DENIES ANY FORM OF TOBACCO USE Alcohol intake: never Substance use: never Substance use type: does not use Do You Feel Safe in your Home?: Yes Lack
[2023-08-01] MEDS: VANCOMYCIN 1,000 MG/NS 250 ML 1,000 MG/250 ML BAG 250 MG IVPB (21:15)
[2023-08-01] MEDS: FAMOTIDINE 20 MG TABLET PO (21:15)
[2023-08-01 22:29] LABS: Glucose Point of Care 157 mg/dl (65-105)
[2023-08-02] MEDS: ACETAMINOPHEN 325 MG TABLET 650 MG PO ×4 (00:09→12:42)
[2023-08-02] MEDS: ceFAZolin 2 GM/D5W 50 ML 2 GM/50 ML BAG IVPB ×2 (00:09→08:45)
[2023-08-02] MEDS: oxyCODONE HCL (*CRX) 5 MG TAB IR PO ×4 (00:10→12:42)
[2023-08-02 00:22] VITALS: BP 126/56; PULSE 71; RESP 18; TEMP 36.2; O2SAT 100
[2023-08-02] MEDS: MORPHINE SULFATE (*CRX) 2 MG/ML INJ IV PUSH (02:30)
[2023-08-02 05:06] VITALS: BP 130/62; PULSE 68; RESP 18; TEMP 36.1; O2SAT 100
[2023-08-02 06:34] LABS: Basophils Percent Auto 0.5 % (0.2-1.2); Eosinophils Percent Auto 0.1 % (0-4.4); Hemoglobin 10.2 g/dL (14.0-18.0); Immature Granulocyte Absolute 0.02 K/mm3 (0.00-0.031); Immature Granulocyte Percent A 0.3 % (0-0.5); Lymphocytes Absolute Auto 0.95 K/mm3 (0.9-3.2); Lymphocytes Percent Auto 11.9 % (18.3-44.2); Mean Corpuscular HGB Conc 31.9 g/dl (32-36); Mean Corpuscular Hemoglobin 30.8 pg (26-34); Mean Corpuscular Volume 96.7 fl (80-100); Mean Platelet Volume 10.5 fl (7.4-10.4); Monocytes Absolute Auto 0.7 K/mm3 (0.1-0.6); Monocytes Percent Auto 8.3 % (2.6-8.5); Neutrophils Absolute Auto 6.3 K/mm3 (1.3-6.7); Neutrophils Percent Auto 78.9 % (45.5-73.1); Platelet Count Result 253 k/mm3 (150-375); Red Blood Count 3.31 M/mm3 (4.6-6.20); Red Cell Distribution Width 13.2 % (11.5-14.5)
[2023-08-02 06:46] LABS: Anion Gap 9 mmol/L (4-12); Blood Urea Nitrogen 35 mg/dL (9-20); Calcium 9.2 mg/dL (8.4-10.2); Carbon Dioxide 20 mmol/L (22-30); Chloride 109 mmol/L (98-107); Estimated CRCL calculation 54 ml/min; Estimated Glomerular Filt Rate 55; Glucose 140 mg/dL (65-110); Potassium 4.6 mmol/L (3.4-5.0); Sodium 138 mmol/L (137-145)
--- NOTE | 2023-08-02 07:34 | PM.PNORT ---
Subjective Subjective Date/Time Seen: 08/02/23 07:34 Interval history: Postop day 1 patient is alert. He is having minimal pain in the knee. He is complaining of some pain and tingling in the lateral calf. None in the foot. He does have a history sciatic problems. He is afebrile vital signs are stable. Morning labs are noted. Creatinine is slightly up at 1.3, preop it was 1.2. GFR is 54. We will switch him to Celebrex 100 mg rather than 200 postoperatively. Patient's dressing is intact and dry. Minimal swelling in the knee. Again he is complaining of some pain in tingling in the lateral calf. He has normal motor function to the right lower extremity. He has no numbness to the dorsum of the foot. Will plan to have patient work with Physical therapy this morning and again this afternoon. Once the 2nd therapy session as well as IV antibiotics been completed the plan will be to discharge him home. Objective Data Vital Signs Vital Signs: Vital Signs - 24 hr 08/01/23 10:24 08/01/23 15:39 08/01/23 15:45 Temperature 99.2 F 97.4 F L Pulse Rate 70 69 66 Respiratory Rate 16 12 11 L Blood Pressure 126/68 119/60 126/63 Pulse Oximetry 100 100 100 Oxygen Delivery Room Air Simple Face Mask Simple Face Mask Oxygen Flow Rate 8 8 08/01/23 16:00 08/01/23 16:15 08/01/23 16:30 Temperature Pulse Rate 72 68 68 Respiratory Rate 16 12 12 Blood Pressure 123/94 H 134/64 137/68 Pulse Oximetry 100 100 100 Oxygen Delivery Simple Face Mask Room Air Room Air Oxygen Flow Rate 8 08/01/23 17:30 08/01/23 18:00 08/01/23 18:56 Temperature 98.3 F 97.6 F Pulse Rate 69 60 Respiratory Rate 16 18 Blood Pressure 131/69 138/73 Pulse Oximetry 99 100 Oxygen Delivery Room Air Oxygen Flow Rate 08/01/23 21:01 08/01/23 20:00 08/02/23 00:22 Temperature 97.6 F 97.2 F L Pulse Rate 74 71 Respiratory Rate 16 18 Blood Pressure 132/65 126/56 L Pulse Oximetry 100 100 Oxygen Delivery Room Air Oxygen Flow Rate 08/02/23 05:06 Temperature 97 F L Pulse Rate 68 Respiratory Rate 18 Blood Pressure 130/62 Pulse Oximetry 100 Oxygen Delivery Oxygen Flow Rate Intake/Output Intake/Output: Intake & Output 07/30/23 07/31/23 08/01/23 08/02/23 23:59 23:59 23:59 23:59 Intake Total 1500 950 Output Total 300 350 Balance 1200 600 Meds/Results Medications: Active Medications Generic Name Dose Route Start Last Admin Trade Name Freq PRN Reason Stop Dose Admin Acetaminophen 650 mg 08/01/23 17:00 08/02/23 05:07 Acetaminophen 325 Mg Tablet PO 650 mg Q4H KAVYA Administration Amlodipine Besylate 10 mg 08/02/23 09:00 Amlodipine Besylate 5 Mg Tablet PO DAILY [facility] Apixaban 2.5 mg 08/02/23 09:00 Apixaban 2.5 Mg Tablet PO 08/13/23 21:01 Q12HR KAVYA Cefdinir 300 mg 08/02/23 09:00 Cefdinir 300 Mg Capsule PO Q12HR KAVYA Celecoxib 200 mg 08/02/23 08:00 Celecoxib 200 Mg Capsule PO DAILY@0800 KAVYA Dextrose 12.5 gm 08/01/23 19:13 Dextrose 50% 25 Gm/50 Ml Syringe IV PUSH PRN PRN Hypoglycemia Protocol Diphenhydramine HCl 25 mg 08/01/23 17:00 Diphenhydramine Hcl Inj 50 Mg/Ml Vial IV PUSH Q6H PRN Itching Empagliflozin 25 mg 08/02/23 09:00 Empagliflozin 25 Mg Tablet BY MOUTH DAILY [facility] Famotidine 20 mg 08/01/23 21:00 08/01/23 21:15 Famotidine 20 Mg Tablet PO 20 mg Q12HR KAVYA Administration Finasteride 5 mg 08/02/23 09:00 Finasteride 5 Mg Tablet PO DAILY [facility] Glucagon 1 mg 08/01/23 19:13 Glucagon For Inj 1 Mg Vial IM PRN PRN Hypoglycemia Protocol Glucose 15 gm 08/01/23 19:13 Glucose Oral Gel 15 Gm Of Glucse In 37.5 Gm Tube PO PRN PRN Hypoglycemia Protocol Cefazolin Sodium 2 gm in 50 mls @ 100 mls/hr 08/01/23 17:00 08/02/23 00:40 Ancef 2 Gm/D5w 50 Ml IVPB 08/02/23 09:29 Infused Q8H [facility] Infusion Vancomycin HCl 1,000 mg in 250 mls @ 250 mls/hr
--- NOTE | 2023-08-02 07:40 | PM.DS ---
DS: Admitting Diagnosis Discharge Date 08/01 Admitting Diagnosis Right knee DJD DS: Discharge Diagnosis Discharge Diagnosis (1) Primary osteoarthritis of right knee: Code(s): M17.11 - Unilateral primary osteoarthritis, right knee Status: Acute DS: Summary Hospital Course Hospital Course: 67-year-old male who underwent right total knee arthroplasty on 07/31. Underwent the procedure without complications. Postoperatively he has been afebrile vital signs stable. Morning of postop day 1 he was complaining of tingling and some pain in the right lateral calf. Patient does have a history of back problems. He has normal sensation to the dorsum of the foot and normal motor function to the right lower extremity. Tingling is little bit worse depending on position, this would correlate to radicular symptoms coming from his back. At this point he has normal motor function and therefore conservative measures will be utilized. Patient will advise us if his symptoms worsen or change. Hopefully this quiet down as he recovers from his knee replacement. Patient is on Eliquis for DVT prophylaxis pain is well controlled with scheduled Tylenol every 4 hours as well as oxycodone 5 mg. He will be discharged home on 08/01. He was advised to keep leg elevated at home but do his exercises on an hourly basis. He has outpatient therapy starting next Saturday. Patient's creatinine on postop day 1 was 1.3. Preoperatively was 1.2. He has history of diabetes and takes meloxicam regularly prior to surgery. We will utilize Celebrex 100 mg daily rather than the 200. Patient will be advised in the future is going to be best for him most likely to be anti-inflammatories because of his kidney function long-term. He does have a severe flatfoot on the left. His arch is completely collapsed causing some shortening in the left leg. We discussed with him that at some point he will need specialized shoe with a slight heel lift so that he has equal leg lengths. This will be dressed later in his recovery. Patient was advised any questions or concerns he should call the office otherwise see him as appointed dates. He will go home on a 10 day course of Omnicef as well as Senokot and MiraLax. Time Spent with Patient Time attestation: Total time spent providing and/or coordinating discharge services: DS: Data Data Completed and Pending Labs on day of discharge: Labs from last 24 hours 08/02/23 08/01/23 08/01/23 05:32 21:16 18:11 WBC 8.0 RBC 3.31 L Hgb 10.2 L Hct 32.0 L MCV 96.7 MCH 30.8 MCHC 31.9 L RDW 13.2 Plt Count 253 MPV 10.5 H Immature Gran % (Auto) 0.3 Neut % (Auto) 78.9 H Lymph % (Auto) 11.9 L [place] % (Auto) 8.3 Eos % (Auto) 0.1 Baso % (Auto) 0.5 Lymph # (Auto) 0.95 [place] # (Auto) 0.7 H Eos # (Auto) 0.0 Baso # (Auto) 0.0 Abs Immat Gran (auto) 0.02 Absolute Neuts (auto) 6.3 Absolute Nucleated RBC 0.000 Nucleated RBC % 0.0 Sodium 138 Potassium 4.6 Chloride 109 H Carbon Dioxide 20 L Anion Gap 9 BUN 35 H Creatinine 1.30 Estim Creat Clear Calc 54 Estimated GFR 55 L Glucose 140 H POC Capillary Glucose 157 H 173 H Calcium 9.2 Blood Type Antibody Screen 08/01/23 08/01/23 08/01/23 15:45 10:01 09:59 WBC RBC Hgb Hct MCV MCH MCHC RDW Plt Count MPV Immature Gran % (Auto) Neut % (Auto) Lymph % (Auto) [place] % (Auto) Eos % (Auto) Baso % (Auto) Lymph # (Auto) [place] # (Auto) Eos # (Auto) Baso # (Auto) Abs Immat Gran (auto) Absolute Neuts (auto) Absolute Nucleated RBC Nucleated RBC % Sodium Potassium Chloride Carbon Dioxide Anion Gap BUN Creatinine Estim Creat Clear Calc Estimated GFR Glucose POC Capillary Glucose 127 H 118 H Calcium Blood Type A Positive Antibody Screen Negative Discha
--- NOTE | 2023-08-02 08:02 | WPDANESPN ---
Anes - Prog Note Post-Op Date/Time: 08/02/23 08:02 Cardiovascular status: normal Respiratory status: normal Airway patency: baseline Mental status: baseline Post-Op hydration status: normal Vital Signs: Last Vital Signs Temp 36.1 C L 08/02/23 05:06 Pulse 68 08/02/23 05:06 Resp 18 08/02/23 05:06 BP 130/62 08/02/23 05:06 Pulse Ox 100 08/02/23 05:06 O2 Del Method Room Air 08/01/23 20:00 O2 Flow Rate 8 08/01/23 16:00 Pain Score (VAS): 04/20 I/O: Intake & Output 08/01/23 08/02/23 08/02/23 23:59 07:59 15:59 Intake Total 1100 950 Output Total 300 350 Balance 800 600 Laboratory Tests 08/02/23 05:32 08/02/23 05:32 08/01/23 08/01/23 08/01/23 09:59 10:01 15:45 WBC RBC Hgb Hct MCV MCH MCHC RDW Plt Count MPV Immature Gran % (Auto) Neut % (Auto) Lymph % (Auto) [place] % (Auto) Eos % (Auto) Baso % (Auto) Lymph # (Auto) [place] # (Auto) Eos # (Auto) Baso # (Auto) Abs Immat Gran (auto) Absolute Neuts (auto) Absolute Nucleated RBC Nucleated RBC % Sodium Potassium Chloride Carbon Dioxide Anion Gap BUN Creatinine Estim Creat Clear Calc Estimated GFR Glucose POC Capillary Glucose 118 H 127 H Calcium Blood Type A Positive Antibody Screen Negative 08/01/23 08/01/23 08/02/23 18:11 21:16 05:32 WBC 8.0 RBC 3.31 L Hgb 10.2 L Hct 32.0 L MCV 96.7 MCH 30.8 MCHC 31.9 L RDW 13.2 Plt Count 253 MPV 10.5 H Immature Gran % (Auto) 0.3 Neut % (Auto) 78.9 H Lymph % (Auto) 11.9 L [place] % (Auto) 8.3 Eos % (Auto) 0.1 Baso % (Auto) 0.5 Lymph # (Auto) 0.95 [place] # (Auto) 0.7 H Eos # (Auto) 0.0 Baso # (Auto) 0.0 Abs Immat Gran (auto) 0.02 Absolute Neuts (auto) 6.3 Absolute Nucleated RBC 0.000 Nucleated RBC % 0.0 Sodium 138 Potassium 4.6 Chloride 109 H Carbon Dioxide 20 L Anion Gap 9 BUN 35 H Creatinine 1.30 Estim Creat Clear Calc 54 Estimated GFR 55 L Glucose 140 H POC Capillary Glucose 173 H 157 H Calcium 9.2 Blood Type Antibody Screen Post-procedural complaints: none Patient Feedback: Patient satisfied with anesthetic care.
[2023-08-02 08:21] LABS: Glucose Point of Care 144 mg/dl (65-105)
[2023-08-02] MEDS: amLODIPine BESYLATE 5 MG TABLET 10 MG PO (08:43)
[2023-08-02] MEDS: FAMOTIDINE 20 MG TABLET PO (08:43)
[2023-08-02] MEDS: metFORMIN HCL XR 500 MG TAB.SR.24H 1000 MG PO (08:43)
[2023-08-02] MEDS: EMPAGLIFLOZIN 25 MG TABLET BY MOUTH (08:43)
[2023-08-02] MEDS: ROSUVASTATIN 20 MG TABLET PO (08:43)
[2023-08-02] MEDS: FINASTERIDE 5 MG TABLET PO (08:43)
[2023-08-02] MEDS: CEFDINIR 300 MG CAPSULE PO (08:44)
[2023-08-02] MEDS: CELECOXIB 100 MG CAPSULE PO (08:44)
[2023-08-02] MEDS: APIXABAN 2.5 MG TABLET PO (08:44)
[2023-08-02] MEDS: SENNA/DOCUSATE SODIUM TABLET 2 TAB PO (08:44)
[2023-08-02] MEDS: polyethylene glycoL 3350 17 GM POWD.PACK PO (08:44)
[2023-08-02] MEDS: VANCOMYCIN 1,000 MG/NS 250 ML 1,000 MG/250 ML BAG 250 MG IVPB (09:20)
--- NOTE | 2023-08-02 10:00 | PM.IMPN ---
Progress Note: A&P Assessment and Plan (1) Primary osteoarthritis of right knee: Code(s): M17.11 - Unilateral primary osteoarthritis, right knee Status: Acute Assessment and Plan: Patient underwent a right knee total arthroplasty on 07/31 with Kaylen HOROWITZ. He has tolerated the procedure well. Ambulate with assistance and with walker. Routine post-op care. Complete seth-operative abx. Continue PT/OT. (2) Diabetes: Code(s): E11.9 - Type 2 diabetes mellitus without complications Status: Acute Assessment and Plan: A1c 7.1 in July. The patient's blood glucose was reviewed on 08/01 Glucose remains well controlled. Continue AccuCheks covering with sliding scale. Hypoglycemia protocol available as needed. Holding Tresiba (NF), Ozempic (NF). Continuing Jardiance and Metformin. Resume home meds at discahr (3) Hypertension: Code(s): I10 - Essential (primary) hypertension Status: Acute Assessment and Plan: Patient's blood pressure was reviewed on 08/01 Blood pressure remains well controlled. Will continue to monitor Plan Diet: DM DVT Prophylaxis: SCDs Code Status: full code Subjective Date/time seen: 08/02/23 10:00 Interval history: 67yo male with DM and HTN here for elective right knee replacement. No complaints. No CP or SOB. No n/v. Eating well. Walking tot he BR with walker. He feels comfortable with discharge plan Exam Narrative: AF 97.0 130/62 68 18 100% ra Gen - NARD Chest - CTA bilaterally, nml RR CV - RRR S1/S2 Abd - Soft, NT/ND, Positive BS Ext - right knee dressing clean, dry and intct. Psych - Nml mood and affect Skin - Warm and dry. dried eschars RUE Objective Data Vital Signs Vital Signs: Vital Signs - 24 hr 08/01/23 10:24 08/01/23 15:39 08/01/23 15:45 Temperature 99.2 F 97.4 F L Pulse Rate 70 69 66 Respiratory Rate 16 12 11 L Blood Pressure 126/68 119/60 126/63 Pulse Oximetry 100 100 100 Oxygen Delivery Room Air Simple Face Mask Simple Face Mask Oxygen Flow Rate 8 8 08/01/23 16:00 08/01/23 16:15 08/01/23 16:30 Temperature Pulse Rate 72 68 68 Respiratory Rate 16 12 12 Blood Pressure 123/94 H 134/64 137/68 Pulse Oximetry 100 100 100 Oxygen Delivery Simple Face Mask Room Air Room Air Oxygen Flow Rate 8 08/01/23 17:30 08/01/23 18:00 08/01/23 18:56 Temperature 98.3 F 97.6 F Pulse Rate 69 60 Respiratory Rate 16 18 Blood Pressure 131/69 138/73 Pulse Oximetry 99 100 Oxygen Delivery Room Air Oxygen Flow Rate 08/01/23 21:01 08/01/23 20:00 08/02/23 00:22 Temperature 97.6 F 97.2 F L Pulse Rate 74 71 Respiratory Rate 16 18 Blood Pressure 132/65 126/56 L Pulse Oximetry 100 100 Oxygen Delivery Room Air Oxygen Flow Rate 08/02/23 05:06 Temperature 97 F L Pulse Rate 68 Respiratory Rate 18 Blood Pressure 130/62 Pulse Oximetry 100 Oxygen Delivery Oxygen Flow Rate Intake/Output Intake/Output: Intake & Output 07/30/23 07/31/23 08/01/23 08/02/23 23:59 23:59 23:59 23:59 Intake Total 1500 1480 Output Total 300 350 Balance 1200 1130 Meds/Results Medications: Active Medications Generic Name Dose Route Start Last Admin Trade Name Freq PRN Reason Stop Dose Admin Acetaminophen 650 mg 08/01/23 17:00 08/02/23 08:44 Acetaminophen 325 Mg Tablet PO 650 mg Q4H KAVYA Administration Amlodipine Besylate 10 mg 08/02/23 09:00 08/02/23 08:43 Amlodipine Besylate 5 Mg Tablet PO 10 mg DAILY KAVYA Administration Apixaban 2.5 mg 08/02/23 09:00 08/02/23 08:44 Apixaban 2.5 Mg Tablet PO 08/13/23 21:01 2.5 mg Q12HR KAVYA Administration Cefdinir 300 mg 08/02/23 09:00 08/02/23 08:44 Cefdinir 300 Mg Capsule PO 300 mg Q12HR KAVYA Administration Celecoxib 100 mg 08/02/23 08:00 08/02/23 08:44 Celecoxib 100 Mg Capsule PO 100 mg DAILY@0800 KAVYA Administration Dextrose 12.5 gm 08/01/23 19:13 Dextrose 50% 25 Gm
[2023-08-02 12:08] LABS: Glucose Point of Care 160 mg/dl (65-105)
[2023-08-02 12:58] VITALS: BP 122/57; PULSE 74; RESP 18; TEMP 36.4; O2SAT 100
== END 2023-08-02 15:45 | disposition home or self-care (01) ==
LOC: ANHSURGERY 09:18 → ANH3MED 17:02
PROVIDERS: Physician Assistant Surgical; PCP Registered Nurse; Visit Provider Orthopaedic Surgery
PROC: (CPT 27447; principal; 2023-08-01 11:30)
DX: M17.11 Unilateral primary osteoarthritis, right knee (principal); M25.761 Osteophyte, right knee; M23.8X1 Other internal derangements of right knee; E11.9 Type 2 diabetes mellitus without complications; I10 Essential (primary) hypertension; Z79.4 Long term (current) use of insulin; Z79.85 Long-term (current) use of injectable non-insulin antidiabetic drugs; Z79.84 Long term (current) use of oral hypoglycemic drugs; Z98.890 Other specified postprocedural states; Z96.652 Presence of left artificial knee joint; Z82.49 Family history of ischemic heart disease and other diseases of the circulatory system
CPT/HCPCS: 27447; 36415; 73560; 80048; 82948; 85025; 86850; 86900; 86901; 97110; 97116; 97161; 97165; 97530; A9270; C1713; C1776; J0171; J0690; J1100; J1170; J1741; J1885; J2250; J2270; J2405; J2704; J2795; J3010; J3370; J7030; J7120

== ENCOUNTER 2024-08-31 11:16 | Outpatient (CLI) | payer MEDICARE, SELFPAY ==
--- NOTE | ~2024-08-31 | XR_ITS ---
XR knee RT min 4V 08/31/2024 11:51 Indication: Right artificial knee joint. Procedure: 4 views right knee with comparison views to the left knee Comparison: 09/11/2023 Findings: There are bilateral knee arthroplasties. Prosthesis appears well seated bilaterally without evidence for loosening. No significant joint effusion. There is atherosclerosis. No lytic or blastic lesions. Impression: 1: No acute bone or joint abnormality. Reviewed, dictated and finalized at location A. Impression: 1: No acute bone or joint abnormality.
== END 2024-08-31 11:17 | disposition home or self-care (01) ==
PROVIDERS: PCP Registered Nurse; Visit Provider Orthopaedic Surgery
DX: Z96.651 Presence of right artificial knee joint (principal)
CPT/HCPCS: 73564